=== PATIENT | female | born 1965 | race Caucasian/White ===

== ENCOUNTER → 2016-11-09 | Outpatient (CLI) | payer OTHER ==
--- NOTE | 2016-11-10 11:32 | WWHP ---
CHIEF COMPLAINT: The patient is here for her routine gynecologic exam and mammogram. HPI: This is a 50-year-old G2, P2 with an LMP of August 2016. She states the period started in July and was long and heavy. She states over the last year period have been about every 1 to 2 months. They have been somewhat irregular for the last two years. Her periods typically used to be 5 days and regular. She has not had a period since her LMP ended in August but she did have a couple days of spotting in September. She denies any significant hot flashes. She previous saw Dr. Herrera for her gynecologic care. She did have an endometrial biopsy because of a pronged period in 2014. This showed disordered proliferative endometrium on 10/29/14. PAST MEDICAL HISTORY: She has had left shoulder problems from bone spurs. She denies any other medical problems. MEDICATIONS: She takes no prescription medications but does take iron supplement and some type of adrenal supplement. ALLERGIES: No known drug allergies. PAST SURGICAL HISTORY: None. PAST OB HISTORY: Two vaginal deliveries. 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 She has no other history of STDs. SOCIAL HISTORY: She denies tobacco and drug use and has about three alcoholic drinks per year. 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 FAMILY HISTORY: Mother had breast cancer in her 60s and also had uterine cancer much earlier in life. Mother also had coronary artery disease. Grandparents had heart disease and diabetes. Father also had diabetes. REVIEW OF SYSTEMS: Weight has been stable. She denies respiratory, cardiac, or GI problems. PHYSICAL EXAM: Initial blood pressure 163/69, repeat blood pressure was 144/ 74. Height 5 feet 9 inches, weight 197 pounds. Temperature 97.7, pulse 79. This is a well developed, well nourished white female who is alert and oriented x3 in no acute distress. HEENT is within normal limits. Neck is supple without mass or thyromegaly. Chest and lungs clear to auscultation. Heart: Regular rate and rhythm. Breasts are without mass or discharge. Axillary exam is negative for adenopathy. Back negative for CVA tenderness. Abdomen is soft, nontender without palpable masses. Pelvic exam: Normal external genitalia. Cervix and vagina appear normal. There is no evidence of prolapse. The uterus is mid- position, nongravid size and nontender. There are no palpable adnexal masses or tenderness. Rectovaginal exam is negative for mass or tenderness and is negative for occult blood. Extremities are nontender. IMPRESSION: 1. A 50-year-old perimenopausal female with recent oligomenorrhea with variable flow and variable period length. 2. History of benign endometrial biopsy 2 years ago. 3. Elevated blood pressure. PLAN: 1. PAP smear was performed. 2. Self breast examination was discussed. 3. Mammogram will be done today. 4. We have discussed various options including endometrial sampling and possible cyclic progesterone therapy. At this time we have decided to proceed conservatively and she will keep a menstrual calendar. She was instructed to return with the menstrual calendar if she is having greater menstrual problems including prolonged menses, frequent menses, heavy menses or problems. 5. She will return in one year and p.r.n. MTDD
--- NOTE | 2016-11-11 11:17 | MM ---
Reason for exam: screening (asymptomatic). Last mammogram was performed 2 years and 1 month ago. History: Family history of breast cancer in mother at age 20. Physical Findings: A clinical breast exam by your physician is recommended on an annual basis and results should be correlated with mammographic findings. MG 3D Screening Mammo W/Cad Bilateral CC and MLO view(s) were taken. Prior study comparison: October 22, 2014, bilateral MG screening mammo w CAD. November 01, 2012, bilateral digital screening mammo w/CAD. The breast tissue is heterogeneously dense. This may lower the sensitivity of mammography. There is no discrete abnormality. No significant changes when compared with prior studies. ASSESSMENT: Negative, BI-RAD 1 RECOMMENDATION: Routine screening mammogram of both breasts in 1 year.
== END ==
LOC: WWCWWP 15:25
PROVIDERS: ATTEND Obstetrics & Gynecology
DX: Z12.31 Encounter for screening mammogram for malignant neoplasm of breast (principal)
CPT/HCPCS: 77063; G0202

== ENCOUNTER → 2018-05-23 | Outpatient (CLI) | payer OTHER ==
[2018-05-23 16:16] VITALS: BP 164/77; PULSE 75; RESP 18; TEMP 97.2; BMI 28.8
--- NOTE | 2018-05-23 17:05 | P.HPOB ---
History of Present Illness H&P Date: 05/23/18 Chief Complaint: The patient is here for her routine gynecologic exam and mammogram. This is a 52-year-old G2 PII with an LMP of 12/25/2017. Menses continue to become more infrequent, about everyone to 4 months. She did have a somewhat prolonged menstrual period that last 11 days in November. Her LMP was very light. She feels that her hot flashes are gradually increasing but are not very severe. She is otherwise without complaints. Review of Systems The patient has lost 13 pounds over the last year. She denies respiratory, cardiac, or G.I. problems. Past Medical History Past Medical History: No Reported History Additional Past Medical History / Comment(s): Left shoulder bone spurs. 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 No other history of STDs. Endometrial biopsy on 10/29/2014 was benign. 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 - Past Family History Mother Family Medical History: Cancer, Hyperlipidemia, Hypertension Additional Family Medical History / Comment(s): uterine and breast. stents, cardiac x2 Father Family Medical History: Diabetes Mellitus, Hypertension Medications and Allergies Home Medications Medication Instructions Recorded Confirmed Type [place]-3 Fatty Acids [[place]-3] 1,000 mg PO DAILY 05/23/18 05/23/18 History Allergies Allergy/AdvReac Type Severity Reaction Status Date / Time No Known Allergies Allergy Verified 05/23/18 16:22 Exam Vital Signs Temp Pulse Resp BP 05/23/18 16:11 97.2 F L 75 18 164/77 Intake and Output 05/23/18 05/23/18 05/23/18 06:59 14:59 22:59 Other: Weight 83.461 kg Height 5'7", weight 184 pounds, BMI 28.8. This is a well-developed well-nourished white female who is alert and oriented times 3 in no acute distress. HEENT: Within normal limits. NECK: Supple without mass or thyromegaly. CHEST AND LUNGS: Clear to auscultation. HEART: Regular rate and rhythm. BREASTS: Are without mass or discharge. AXILLARY EXAM: Negative for adenopathy. BACK: Negative for CVA tenderness. ABDOMEN: Soft, nontender, without palpable masses. PELVIC EXAM: Normal external genitalia with minimal atrophy. Cervix and vagina appear normal. There is no unusual discharge. There is no evidence of prolapse. The uterus is midposition, nongravid size and nontender. There are no palpable adnexal masses or tenderness. RECTAL EXAM: rectovaginal exam is negative for mass or tenderness and is negative for occult blood. EXTREMITIES: Nontender. IMPRESSION: 1. 52-year-old perimenopausal female with menstrual periods every 1 to 4 months during the past year. Increasing vasomotor symptoms 2. Previous ascus Pap smear with negative high-risk HPV on 11/09/2016. 3. Normal gynecologic exam. PLAN: 1. Pap smear was deferred. We will plan on repeating the Pap smear with high- risk HPV testing (co-test) in one year. We have reviewed her previous Pap smear and discussed the current recommendations for this. 2. Self breast awareness was discussed with the patient. 3. Screening mammogram was done today. 4. She will continue to keep a menstrual calendar and call if she's having menstrual problems, or if she has any bleeding after one year of amenorrhea. 5. Colonoscopy had been previously recommended. The patient has discussed this with her primary care physician and she has decided to proceed with Cologard testing. 6. She will return in one year.
--- NOTE | 2018-05-25 09:57 | MM ---
Reason for exam: screening (asymptomatic). Last mammogram was performed 1 year and 6 months ago. History: Family history of breast cancer in mother at age 20. Physical Findings: A clinical breast exam by your physician is recommended on an annual basis and results should be correlated with mammographic findings. MG 3D Screening Mammo W/Cad Bilateral CC and MLO view(s) were taken. Prior study comparison: November 09, 2016, bilateral MG 3d screening mammo w/cad. October 22, 2014, bilateral MG screening mammo w CAD. The breast tissue is heterogeneously dense. This may lower the sensitivity of mammography. No significant changes when compared with prior studies. ASSESSMENT: Negative, BI-RAD 1 RECOMMENDATION: Routine screening mammogram of both breasts in 1 year.
== END ==
LOC: WWCWWP 15:02
PROVIDERS: ATTEND Obstetrics & Gynecology
DX: Z12.31 Encounter for screening mammogram for malignant neoplasm of breast (principal)
CPT/HCPCS: 77063; 77067

== ENCOUNTER → 2018-12-21 | Outpatient (CLI) | payer OTHER ==
--- NOTE | 2018-12-21 15:23 | XR ---
EXAMINATION TYPE: XR foot complete RT DATE OF EXAM: 12/21/2018 CLINICAL HISTORY: Heel pain for 6 months. TECHNIQUE: Frontal, lateral, and oblique images of the right foot are obtained. COMPARISON: None FINDINGS: There is no acute fracture/dislocation evident in the right foot. Flexion and second thro ugh fifth toes is seen. There is various positioning distal third through fifth toes. Tiny superior c alcaneal spur. The joint spaces in the right foot appear within normal limits. The overlying soft ti ssue appears unremarkable. IMPRESSION: As above.
== END | disposition home or self-care (01) ==
LOC: RADXRYALE 15:05
PROVIDERS: ATTEND Family Medicine
DX: M77.31 Calcaneal spur, right foot (principal); M21.271 Flexion deformity, right ankle and toes

== ENCOUNTER 2018-12-29 18:36 | Emergency (ER) | payer OTHER ==
[2018-12-29 18:45] VITALS: TEMP 97.8
--- NOTE | 2018-12-29 19:19 | ED ---
Back Pain HPI - General Chief Complaint: Back Pain/Injury Stated Complaint: Side Pain Time Seen by Provider: 12/29/18 19:03 Source: patient Limitations: no limitations - History of Present Illness Initial Comments: Patient is a 53-year-old female presenting to the emergency department with a chief complaint of abdominal and back pain. Patient reports her symptoms started approximately a week ago with a sudden onset of sharp paraspinal pain in the lumbosacral region and radiates to the abdomen. Patient reportedly recently the pain has been more localized to the right lower quadrant region. Patient reports the pain is not related to oral intake. Patient reports she has no pain at this moment. An typical episodes last for about 30 minutes. Patient denies any nausea vomiting diarrhea. Patient denies any recent fevers night sweats or chills. Patient denies any abdominal surgeries. Patient is not concerned for . Patient denies any urinary or bowel symptoms. Patient reports the pain is not related to specific anatomical movements. Patient denies any trauma to the region. Patient denies saddle anesthesia, urinary or bowel incontinence. - Related Data Home Medications Medication Instructions Recorded Confirmed [place]-3 Fatty Acids [[place]-3] 1,000 mg PO DAILY 05/23/18 05/23/18 Previous Rx's Medication Instructions Recorded Cephalexin [Keflex] 500 mg PO Q6HR 3 Days #20 cap 12/29/18 Allergies Allergy/AdvReac Type Severity Reaction Status Date / Time No Known Allergies Allergy Verified 12/29/18 18:45 Review of Systems ROS Statement: Those systems with pertinent positive or pertinent negative responses have been documented in the HPI. ROS Other: All systems not noted in ROS Statement are negative. Past Medical History Past Medical History: No Reported History Additional Past Medical History / Comment(s): Left shoulder bone spurs. Endometrial biopsy on 10/29/2014 was benign. History of Any Multi-Drug Resistant Organisms: None Reported Past Surgical History: No Surgical Hx Reported Past Anesthesia/Blood Transfusion Reactions: No Reported Reaction Past Psychological History: No Psychological Hx Reported Smoking Status: Never smoker Past Alcohol Use History: Rare Past Drug Use History: None Reported - Past Family History Mother Family Medical History: Cancer, Hyperlipidemia, Hypertension Additional Family Medical History / Comment(s): uterine and breast. stents, cardiac x2 Father Family Medical History: Diabetes Mellitus, Hypertension General Exam Limitations: no limitations General appearance: alert, in no apparent distress Head exam: Present: atraumatic, normocephalic, normal inspection Eye exam: Present: normal appearance, PERRL, EOMI Pupils: Present: normal accommodation ENT exam: Present: normal exam, normal oropharynx, mucous membranes moist, TM's normal bilaterally, normal external ear exam Neck exam: Present: normal inspection, full ROM. Absent: tenderness, meningismus Respiratory exam: Present: normal lung sounds bilaterally Cardiovascular Exam: Present: regular rate, normal rhythm, normal heart sounds GI/Abdominal exam: Present: soft, tenderness (Right lower quadrant), normal bowel sounds. Absent: distended, guarding, rebound, mass, pulsatile mass, hernia Extremities exam: Present: normal inspection, full ROM, normal capillary refill, other (+2 dorsalis pedis and posterior tibialis bilaterally.) Back exam: Present: normal inspection, full ROM. Absent: tenderness (No tenderness to palpation in the back.), CVA tenderness (R), CVA tenderness (L), muscle spasm, paraspinal tenderness, vertebral tenderness Neurological exam: Present: alert, oriented X3 Psychiatric exam: Present: normal affect, normal mood Skin exam: Present: warm, intact, normal color Course Vital Signs 12/29/18 12/29/18 18:43 21:20 Temperature 97.8 F 97.8 F Pulse Rate 77 18 L Respiratory 18 76 H Rate Blood Pressure 160/81 163/78 O2 Sat by Pulse 99 99 Oximetry Medical Decision Making - Medical Decision Making Patient is a 53-year-old female presenting to the emergency department with a chief complaint of abdominal pain. Patient reports cramping pain in the right lower quadrant region and comes and goes. Patient also reports that initially started as back pain but has since then to the right lower quadrant. Patient reports going to the urgent care who was concerned for appendicitis and sent the patient for ED evaluation. Patient has McBurney point tenderness but negative obturator, negative Rovsing, negative psoas, negative rebound and negative [place]. Laboratory results are unremarkable. UA is indicative of a mild possible UTI. Hematuria could also be indicative of a possible kidney stone. At this time patient does not fit the augustin criteria for CT imaging. Strict return parameters were thoroughly discussed with patient was understanding and agreeable. Patient will be treated with Keflex. Case discussed with physician. - Lab Data Result diagrams: 12/29/18 20:12/29/18 20: Lab Results 12/29/18 12/29/18 12/29/18 Range/Units 20: 20: 20:01 WBC 9.4 (3.8-10.6) k/uL RBC 4.79 (3.80-5.40) m/uL Hgb 15.7 (11.4-16.0) gm/dL Hct 44.4 (34.0-46.0) % MCV 92.8 (80.0-100.0) fL MCH 32.9 (25.0-35.0) pg MCHC 35.4 (31.0-37.0) g/dL RDW 13.5 (11.5-15.5) % Plt Count 276 (150-450) k/uL Neutrophils % 78 % Lymphocytes % 15 % Monocytes % 5 % Eosinophils % 1 % Basophils % 0 % Neutrophils # 7.4 (1.3-7.7) k/uL Lymphocytes # 1.4 (1.0-4.8) k/uL Monocytes # 0.5 (0-1.0) k/uL Eosinophils # 0.1 (0-0.7) k/uL Basophils # 0.0 (0-0.2) k/uL Sodium 139 (137-145) mmol/L Potassium 4.0 (3.5-5.1) mmol/L Chloride 102 (98-107) mmol/L Carbon Dioxide 24 (22-30) mmol/L Anion Gap 13 mmol/L BUN 14 (7-17) mg/dL Creatinine 0.74 (0.52-1.04) mg/dL Est GFR (CKD-EPI)AfAm >90 (>60 ml/min/1.73 sqM) Est GFR (CKD-EPI)NonAf >90 (>60 ml/min/1.73 sqM) Glucose 76 (74-99) mg/dL Calcium 9.6 (8.4-10.2) mg/dL Total Bilirubin 0.9 (0.2-1.3) mg/dL AST 26 (14-36) U/L ALT 28 (9-52) U/L Alkaline Phosphatase 74 (38-126) U/L Total Protein 7.8 (6.3-8.2) g/dL Albumin 4.8 (3.5-5.0) g/dL Amylase 55 (30-110) U/L Lipase 76 (23-300) U/L Urine Color Light Yellow Urine Appearance Clear (Clear) Urine pH 5.5 (5.0-8.0) Ur Specific [place] 1.018 (1.001-1.035) Urine Protein Trace H (Negative) Urine Glucose (UA) Negative (Negative) Urine Ketones Negative (Negative) Urine Blood Moderate H (Negative) Urine Nitrite Negative (Negative) Urine Bilirubin Negative (Negative) Urine Urobilinogen <2.0 (<2.0) mg/dL Ur Leukocyte Esterase Moderate H (Negative) Urine RBC 35 H (0-5) /hpf Urine WBC 22 H (0-5) /hpf Urine Mucus Occasional H (None) /hpf Urine HCG, Qual (Not Detectd) 12/29/18 Range/Units 20:01 WBC (3.8-10.6) k/uL RBC (3.80-5.40) m/uL Hgb (11.4-16.0) gm/dL Hct (34.0-46.0) % MCV (80.0-100.0) fL MCH (25.0-35.0) pg MCHC (31.0-37.0) g/dL RDW (11.5-15.5) % Plt Count (150-450) k/uL Neutrophils % % Lymphocytes % % Monocytes % % Eosinophils % % Basophils % % Neutrophils # (1.3-7.7) k/uL Lymphocytes # (1.0-4.8) k/uL Monocytes # (0-1.0) k/uL Eosinophils # (0-0.7) k/uL Basophils # (0-0.2) k/uL Sodium (137-145) mmol/L Potassium (3.5-5.1) mmol/L Chloride (98-107) mmol/L Carbon Dioxide (22-30) mmol/L Anion Gap mmol/L BUN (7-17) mg/dL Creatinine (0.52-1.04) mg/dL Est GFR (CKD-EPI)AfAm (>60 ml/min/1.73 sqM) Est GFR (CKD-EPI)NonAf (>60 ml/min/1.73 sqM) Glucose (74-99) mg/dL Calcium (8.4-10.2) mg/dL Total Bilirubin (0.2-1.3) mg/dL AST (14-36) U/L ALT (9-52) U/L Alkaline Phosphatase (38-126) U/L Total Protein (6.3-8.2) g/dL Albumin (3.5-5.0) g/dL Amylase (30-110) U/L Lipase (23-300) U/L Urine Color Urine Appearance (Clear) Urine pH (5.0-8.0) Ur Specific [place] (1.001-1.035) Urine Protein (Negative) Urine Glucose (UA) (Negative) Urine Ketones (Negative) Urine Blood (Negative) Urine Nitrite (Negative) Urine Bilirubin (Negative) Urine Urobilinogen (<2.0) mg/dL Ur Leukocyte Esterase (Negative) Urine RBC (0-5) /hpf Urine WBC (0-5) /hpf Urine Mucus (None) /hpf Urine HCG, Qual Not Detected (Not Detectd) Disposition Clinical Impression: UTI (urinary tract infection) Disposition: HOME SELF-CARE Condition: Stable Instructions (If sedation given, give patient instructions): Kidney Stones (ED) Additional Instructions: Please take prescribed medication as directed. Please follow up with primary care. Please return to emergency department if symptoms worsen. Prescriptions: Cephalexin [Keflex] 500 mg PO Q6HR 3 Days #20 cap Is patient prescribed a controlled substance at d/c from ED?: No Referrals: Garland Lemons DO [Primary Care Provider] - 1-2 days Time of Disposition: 21:01
[2018-12-29 20:20] LABS: ALT 28 U/L (9-52); AST 26 U/L (14-36); African American GFR (CKD) >90 (>60 ml/min/1.73 sqM); Albumin 4.8 g/dL (3.5-5.0); Alkaline Phosphatase 74 U/L (38-126); Amylase 55 U/L (30-110); Anion Gap 13 mmol/L; Blood Urea Nitrogen 14 mg/dL (7-17); Calcium 9.6 mg/dL (8.4-10.2); Carbon Dioxide 24 mmol/L (22-30); Chloride 102 mmol/L (98-107); Glucose 76 mg/dL (74-99); Sodium 139 mmol/L (137-145); Total Bilirubin 0.9 mg/dL (0.2-1.3); Total Protein 7.8 g/dL (6.3-8.2)
[2018-12-29 20:27] LABS: Basophils % (A) 0 %; Eosinophils # (A) 0.1 k/uL (0-0.7); Eosinophils % (A) 1 %; HCT 44.4 % (34.0-46.0); HGB 15.7 gm/dL (11.4-16.0); Lymphocytes # (A) 1.4 k/uL (1.0-4.8); Lymphocytes % (A) 15 %; MCH 32.9 pg (25.0-35.0); MCHC 35.4 g/dL (31.0-37.0); MCV 92.8 fL (80.0-100.0); Mean Platelet Volume 6.6; Monocytes # (A) 0.5 k/uL (0-1.0); Monocytes % (A) 5 %; Neutrophils # (A) 7.4 k/uL (1.3-7.7); Neutrophils % (A) 78 %; Platelet Count 276 k/uL (150-450); RBC 4.79 m/uL (3.80-5.40); RDW 13.5 % (11.5-15.5); WBC 9.4 k/uL (3.8-10.6)
[2018-12-29 20:39] LABS: Appearance,Urine Clear (Clear); Bilirubin,Urine Negative (Negative); Blood,Urine Moderate (Negative); Color,Urine Light Yellow; Glucose,Urine (UA) Negative (Negative); Ketones,Urine Negative (Negative); Leukocyte Esterase,Urine Moderate (Negative); Mucus,Urine Occasional /hpf; Nitrite,Urine Negative (Negative); PH, Urine 5.5 (5.0-8.0); Protein,Urine Trace (Negative); RBC,Urine 35 /hpf (0-5); Specific Gravity,Urine 1.018 (1.001-1.035); Urobilinogen,Urine <2.0 mg/dL (<2.0); WBC,Urine 22 /hpf (0-5)
[2018-12-29 21:21] VITALS: BP 163/78; PULSE 18; RESP 76
== END 2018-12-29 21:22 | disposition home or self-care (01) ==
LOC: EC 18:36
DX: N39.0 Urinary tract infection, site not specified (principal)
CPT/HCPCS: 36415; 80053; 81001; 81025; 82150; 83690; 85025; 99284

== ENCOUNTER → 2019-01-04 | Outpatient (CLI) | payer OTHER ==
--- NOTE | 2019-01-04 18:12 | CT ---
EXAMINATION TYPE: CT abdomen pelvis w con DATE OF EXAM: 01/04/2019 COMPARISON: None HISTORY: Right flank and abdominal pain, hematuria CT DLP: 1654 mGycm Automated exposure control for dose reduction was used. TECHNIQUE: Helical acquisition of images from the lung bases through the pelvis have been completed. CONTRAST: Performed with Oral Contrast and with IV Contrast, patient injected with 100 mL of Isovue 300. FINDINGS: LUNG BASES: No significant abnormality is appreciated. AORTA: No significant abnormality is appreciated. LIVER/GB: Gallstones are present in the gallbladder. Liver shows low attenuation likely due to hepati c steatosis. Focal fatty sparing present adjacent to the gallbladder. Liver is enlarged. PANCREAS: No significant abnormality is seen. SPLEEN: No significant abnormality is seen. ADRENALS: No significant abnormality is seen. KIDNEYS: Calcified right renal pelvic calculus measures 2.5 cm. There is some mild right-sided hydron ephrosis. Some enhancement of the proximal right ureter could be due to inflammatory change. There is a cortical cyst left kidney lower pole measuring 13 mm. There is mild right hydroureter. REPRODUCTIVE ORGANS: Mild heterogeneity of the endometrium is noted. This is of questionable clinical significance. Left ovarian cyst is present measuring 3.4 cm. BOWEL: No significant abnormality is seen. The appendix is normal. FREE AIR: No Free Air visible. ASCITES: None visible. PELVIC ADENOPATHY: None visualized. RETROPERITONEAL ADENOPATHY: No Retroperitoneal Adenopathy visible. URINARY BLADDER: No significant abnormality is seen. OSSEOUS STRUCTURES: No significant abnormality is seen. IMPRESSION: RIGHT-SIDED NEPHROLITHIASIS. POSSIBLE ASSOCIATED INFLAMMATORY CHANGE, CORRELATE TO EXCLUDE URINARY TR ACT INFECTION. CHOLELITHIASIS. HEPATIC STEATOSIS, HEPATOMEGALY. INDETERMINATE LEFT OVARIAN CYSTIC LES ION.
== END | disposition home or self-care (01) ==
LOC: RADCTMAIN 14:22
PROVIDERS: ATTEND Family Medicine
DX: N20.0 Calculus of kidney (principal); K76.0 Fatty (change of) liver, not elsewhere classified; R16.0 Hepatomegaly, not elsewhere classified; K80.20 Calculus of gallbladder without cholecystitis without obstruction; R31.29 Other microscopic hematuria
CPT/HCPCS: 74177; Q9967 ×2

== ENCOUNTER → 2019-01-22 | Outpatient (CLI) | payer OTHER ==
[2019-01-22 07:34] LABS: Calcium 9.5 mg/dL (8.4-10.2); Potassium 4.6 mmol/L (3.5-5.1)
[2019-01-22 07:38] LABS: Basophils % (A) 1 %; Eosinophils # (A) 0.1 k/uL (0-0.7); Eosinophils % (A) 2 %; HCT 43.8 % (34.0-46.0); HGB 15.1 gm/dL (11.4-16.0); Lymphocytes # (A) 1.5 k/uL (1.0-4.8); Lymphocytes % (A) 30 %; MCH 32.3 pg (25.0-35.0); MCHC 34.4 g/dL (31.0-37.0); MCV 93.8 fL (80.0-100.0); Mean Platelet Volume 5.7; Monocytes # (A) 0.3 k/uL (0-1.0); Monocytes % (A) 7 %; Neutrophils # (A) 2.7 k/uL (1.3-7.7); Neutrophils % (A) 57 %; Platelet Count 302 k/uL (150-450); RBC 4.67 m/uL (3.80-5.40); RDW 13.1 % (11.5-15.5); WBC 4.8 k/uL (3.8-10.6)
[2019-01-22 07:49] LABS: Appearance,Urine Clear (Clear); Bilirubin,Urine Negative (Negative); Blood,Urine Trace (Negative); Color,Urine Light Yellow; Glucose,Urine (UA) Negative (Negative); Ketones,Urine Negative (Negative); Leukocyte Esterase,Urine Moderate (Negative); Mucus,Urine Rare /hpf; Nitrite,Urine Negative (Negative); PH, Urine 5.5 (5.0-8.0); Protein,Urine Negative (Negative); RBC,Urine 3 /hpf (0-5); Specific Gravity,Urine 1.013 (1.001-1.035); Squamous Epithelial Cell,Urine 1 /hpf (0-4); Urobilinogen,Urine <2.0 mg/dL (<2.0); WBC,Urine 17 /hpf (0-5)
== END | disposition home or self-care (01) ==
LOC: LABPAT 06:33
PROVIDERS: ATTEND Urology
DX: Z01.818 Encounter for other preprocedural examination (principal); Z01.812 Encounter for preprocedural laboratory examination; N20.0 Calculus of kidney; R31.29 Other microscopic hematuria; R53.83 Other fatigue
CPT/HCPCS: 36415; 80048; 81001; 85025; 87086; 93005

== ENCOUNTER 2019-01-29 08:05 | Day surgery (SDC) | payer OTHER ==
[2019-01-24 17:16] VITALS: BMI 30.2
--- NOTE | 2019-01-29 08:33 | XR ---
EXAMINATION TYPE: XR abdomen 1V DATE OF EXAM: 01/29/2019 Comparison: CT 01/04/2019 Clinical History: 53-year-old female N41 stones Findings: Nonobstructive bowel gas pattern. Overall mild stool burden with moderate stool in the rectum. Large 2.7 cm calculus within the right renal collecting system. Impression: Redemonstrated 2.7 cm right-sided renal calculus located within the collecting system.
[2019-01-29] MEDS ORDERED: LACTATED RINGERS 1,000 ML IV ONE ×2 (08:47→11:39)
[2019-01-29] MEDS ORDERED: ONDANSETRON 4 MG/2 ML VIAL IVP ONE (08:51)
[2019-01-29] MEDS ORDERED: HYDROmorphone 0.5 MG/0.5 ML SYRINGE IVP PRN (08:51)
[2019-01-29] MEDS ORDERED: DEXAMETHASONE SOD PHOSPHATE 10 MG/ML 1 ML VIAL IV ONE (08:51)
[2019-01-29] MEDS ORDERED: LIDOCAINE 1% 20 ML VIAL (10MG/ML) FOR IV START INTRADERMA PRN (08:51)
[2019-01-29] MEDS ORDERED: SCOPOLAMINE 1.5MG/72HR PATCH TRANSDERM ONE (08:51)
[2019-01-29] MEDS ORDERED: SUCCINYLCHOLINE CHLORIDE 100 MG/5 ML SYR IV ONE (09:34)
[2019-01-29] MEDS ORDERED: PROPOFOL 10 MG/ML 20 ML VIAL IV ONE (09:34)
[2019-01-29] MEDS ORDERED: DEXAMETHASONE SOD PHOS (MDV) 100 MG/10 ML VIAL ONE (09:34)
[2019-01-29] MEDS ORDERED: fentaNYL (PF) 50 MCG/ML 2 ML AMP ONE (09:34)
[2019-01-29] MEDS ORDERED: KETOROLAC 30 MG/ML 1 ML VIAL ONE (09:34)
[2019-01-29] MEDS ORDERED: MIDAZOLAM 2 MG/2 ML VIAL ONE (09:34)
[2019-01-29] MEDS ORDERED: IOPAMIDOL-370 50ML BTL MISCELLANE ONE ×2 (09:34)
[2019-01-29] MEDS ORDERED: ONDANSETRON 4 MG/2 ML VIAL ONE (09:34)
--- NOTE | 2019-01-29 09:41 | P.HPIHPCON ---
History of Present Illness H&P Date: 01/29/19 Chief Complaint: right sided renal stone 53 yo female with hx of right sided renal stone. She elected to proceed with R PCNL Consent for Procedure: I have explained the operation/procedure to the patient, including the risks, benefits, side effects, alternative therapies (including not receiving the proposed treatment or service), the likelihood of the patient achieving his/her goals, and potential recuperation problems for the procedure/sedation/analgesia, as well as any blood products, if indicated. I also explained to the patient the risks, benefits and side effects of the alternatives, as well as the risks related to not receiving the proposed procedure, care, treatment, or services. Past Medical History Past Medical History: Musculoskeletal Disorder Additional Past Medical History / Comment(s): Left shoulder bone spurs, sl tear. Endometrial biopsy 10/29/2014, benign. Kidney stones. Told "liver enlarged, lt ovarian cyst, gallstones on recent CT scan." History of Any Multi-Drug Resistant Organisms: None Reported Past Surgical History: No Surgical Hx Reported Additional Past Surgical History / Comment(s): [place] teeth removed. Past Anesthesia/Blood Transfusion Reactions: No Reported Reaction, Family History of Problems w/ Anesthesia Additional Past Anesthesia/Blood Transfusion Reaction / Comment(s): Mother had problem years ago, recent surgery no problems. Smoking Status: Never smoker - Past Family History Mother Family Medical History: Cancer, Hyperlipidemia, Hypertension Additional Family Medical History / Comment(s): uterine and breast. stents, cardiac x2 Father Family Medical History: Diabetes Mellitus, Hypertension Brother(s) Family Medical History: Cancer Additional Family Medical History / Comment(s): Skin CA; another brother had a male-type CA, unknown Medications and Allergies Home Medications Medication Instructions Recorded Confirmed Type Cholecalciferol (Vitamin D3) 1 drop PO DAILY 01/24/19 01/24/19 History [Vitamin D3] Fish Oil/Dha/Epa [Fish Oil 1,200 3 each PO DAILY 01/24/19 01/24/19 History mg Fish Oil] Niacin 500 mg PO DAILY 01/24/19 01/24/19 History Turmeric/Turmeric Root Extract 2 each PO DAILY 01/24/19 01/24/19 History [Turmeric 450-50 mg Capsule] Allergies Allergy/AdvReac Type Severity Reaction Status Date / Time No Known Allergies Allergy Verified 01/29/19 08:30 Surgical - Exam Vital Signs Temp Pulse Resp BP Pulse Ox 97.3 F L 86 16 164/69 98 01/29/19 08:38 01/29/19 08:38 01/29/19 08:38 01/29/19 08:38 01/29/19 08:38 - General well developed, no distress - Respiratory normal expansion, normal respiratory effort - Cardiovascular Rhythm: regular - Abdomen Abdomen: soft, non tender Assessment and Plan Assessment: 53 yo female with hx of 2.7 cm right sided renal stone -R PCNL, we discussed the surgery with her in details and all alternative. She agreed to proceed with R PCNL
[2019-01-29 09:56] LABS: Prothrombin Time 10.7 sec (9.0-12.0)
[2019-01-29] MEDS ORDERED: ACETAMINOPHEN TAB 325 MG TAB PO PRN (12:04)
[2019-01-29] MEDS ORDERED: ONDANSETRON 4 MG/2 ML VIAL IVP PRN (12:04)
[2019-01-29] MEDS ORDERED: MAG HYDROX/AL HYDROX/SIMETH 30 ML CUP PO PRN (12:04)
[2019-01-29] MEDS ORDERED: MORPHINE SULFATE 4 MG/ML SYRINGE IVP PRN (12:07)
--- NOTE | 2019-01-29 13:04 | FL ---
EXAMINATION TYPE: FL Perc Nephrostomy New Access DATE OF EXAM: 01/29/2019 COMPARISON: NONE HISTORY: Hydronephrosis, ureteral obstruction with staghorn calculus. PROCEDURE: Maximal barrier technique was utilized. The skin overlying the right kidney was localized using fluo roscopy and the overlying skin prepped and draped. Lidocaine used for local anesthesia. Skin alyse w as made with a scalpel. Access was gained under fluoroscopy, following placement of a ureteral occlu alyssa balloon by the referring clinician and instillation of air in the renal collecting system with a 21-gauge needle to the kidney. A suitable posterior calyx was chosen. A 0.018 inch wire was Do It In Person. The access site was dilated and subsequently a sheath was advanced into the renal pelvis follow ing dilation with balloon along the tract. Urine returned in the hub of the catheter. The patient und erwent nephrolithotomy by the referring clinician. The patient remained in stable condition without complication. The patient was discharged to observation. IMPRESSION: 4 intraoperative C-arm images. 2 minutes 25 seconds of intraoperative fluoroscopy support supplied STATUS POST NEPHROSTOMY PLACEMENT FOR NEPHROLITHOTOMY WITH FLUOROSCOPIC GUIDANCE. THIS PROCEDURE PER FORMED BY THE UNDERSIGNED.
[2019-01-29] MEDS: DEXTROSE 5%-0.45% NACL 1,000 ML IV SCH ×2 (14:07→20:30)
[2019-01-29] MEDS: LACTATED RINGERS 1,000 ML IV SCH (15:22)
[2019-01-29] MEDS ORDERED: ceFAZolin 1 GM in SODIUM CHLORIDE 0.9% 100 ML IVPB SCH (16:00)
--- NOTE | 2019-01-29 16:38 | P.OP ---
Date of Procedure: 01/29/19 Preoperative Diagnosis: Right sided renal calculi Postoperative Diagnosis: same Procedure(s) Performed: Cystoscopy, right ureteral catherization, Right PCNL, anterograde stent placement and nephrostomy tube placement Implants: 6Fr X 26 cm stent Anesthesia: NIKKI Surgeon: Etienne Bullock Estimated Blood Loss (ml): 75 Pathology: other (stone for analysis) Condition: stable Disposition: floor Indications for Procedure: Ms. Tamayo is 53 yo female with hx of a large right side calculi. We discussed with her given the stone size a PCNL would be the most definitve option to address her stone. We discussed the alternative which are ESWL and ureteroscopy. I discussed the risk of PCNL which include bleeding, infection and injury to nearby organ. She understood all the risk and agreed to proceed with surgery Sge understood all the risks and agreed to proceed with Right PCNL.I have explained the operation/procedure to the patient, including the risks, benefits, side effects, alternative therapies (including not receiving the proposed niraj atment or service), the likelihood of the patient achieving his/her goals, and potential recuperation problems for the procedure/sedation/analgesia, as well as any blood products, if indicated. I also explained to the patient the risks, benefits and side effects of the alternatives, as well as the risks related to not receiving the proposed procedure, care, treatment, or services. Operative Findings: Large right sided renal calculi in the renal pelvis Description of Procedure: The patient was brought to the operating room, general anesthesia was induced. She was prepped and draped in sterile fashion and placed supine frog leg postion. the right ureteral orfice was identified and intubated with 0.035 motion wire. The cystoscope was removed with wire in place.A 7 Fr baloon ocluded catheter was passed over the wire and advanced to the renal pelvis, a [place] catheter was placed in the bladder At this time the patient was placed in prone position, and prepped and draped in sterile fashion. A large renal calculi was visualized on fluoroscopy. At this time Dr Erickson performed percutaneous access on the right kidney. Please see his dictation for his portion of procedure. Once access was obtained the The tract was dilated using the balloon dilators, Next a 24-Vietnamese access sheath was advanced over the balloon. The balloon was re moved with the sheath in place. Next a rigid nephroscope was inserted through the sheath and large calculi was visualized. The stone was broken up into smaller fragments using the ultrasound lithotripter. Stone fragments were removed and sent for stone analysis. Repeat nephroscopy was performed using the rigid nephroscope and flexibile cystoscope Showed no injury to the UPJ or renal pelvis, contrast extravisation or any residual stone. Anterograde nephrostogram showed no filling defect or any residual stones in the ureter or the kidney. . Next a 0.035 sensor wire was advanced through the scope and into the bladder. scope was removed with wire in place. next the 10 Fr dilator was passed over the wire. A second wire was passed through the dilator Next, a 4.8- Vietnamese by 26 cm stent was passed over the wire and curl was visualized in the bladder and kidney under fluoroscopy. A 10 Fr nephrostomy tube was passed over the second wire and into the renal pelvis. The patient was awoken from anesthesia and taken to the recovery room in stable condition.
[2019-01-29] MEDS: SODIUM CHLORIDE 0.9% 1,000 ML IV SCH (16:51)
[2019-01-29] MEDS: HEPARIN SODIUM,PORCINE 5,000 UNIT/ML 1 ML VIAL SQ SCH ×2 (16:51→23:47)
[2019-01-29 20:48] VITALS: RESP 18
[2019-01-29 21:47] LABS: HCT 38.9 % (34.0-46.0); HGB 13.7 gm/dL (11.4-16.0); MCH 32.7 pg (25.0-35.0); MCHC 35.3 g/dL (31.0-37.0); MCV 92.8 fL (80.0-100.0); Mean Platelet Volume 5.9; Platelet Count 288 k/uL (150-450); RBC 4.19 m/uL (3.80-5.40); RDW 12.7 % (11.5-15.5); WBC 10.6 k/uL (3.8-10.6)
[2019-01-29 21:57] LABS: Potassium 4.9 mmol/L (3.5-5.1)
[2019-01-30] MEDS: KETOROLAC 30 MG/ML 1 ML VIAL IVP PRN ×2 (03:35→13:16)
[2019-01-30] MEDS: SODIUM CHLORIDE 0.9% 1,000 ML IV SCH (03:48)
[2019-01-30] MEDS: HEPARIN SODIUM,PORCINE 5,000 UNIT/ML 1 ML VIAL SQ SCH (08:39)
[2019-01-30] MEDS ORDERED: CHOLECALCIFEROL 1,000 UNIT TAB PO SCH (09:00)
[2019-01-30] MEDS: DEXTROSE 5%-0.45% NACL 1,000 ML IV SCH (09:08)
[2019-01-30] MEDS: LACTATED RINGERS 1,000 ML IV SCH (09:09)
[2019-01-30 12:28] VITALS: BP 134/64; PULSE 63; TEMP 96.9
--- NOTE | 2019-01-30 13:00 | P.PN ---
Subjective Progress Note Date: 01/30/19 Principal diagnosis: right renal calculi Ms. Tamayo is 53 yo female S/P R PCNL. no acute overnight event, pain is controlled. Tolerating diet, denies N/V. Objective - Vital Signs Vital signs: Vital Signs Temp 96.9 F L 01/30/19 12:27 Pulse 63 01/30/19 12:27 Resp 18 01/30/19 12:27 BP 134/64 01/30/19 12:27 Pulse Ox 98 01/30/19 12:27 Intake & Output 01/29/19 01/30/19 01/30/19 18:59 06:59 18:59 Intake Total 1650 1800 Output Total 2085 2000 475 Balance -435 -200 -475 Intake: IV 1650 Intake, IV Titration 1200 Amount Sodium Chloride 0.9% 1, 1200 000 ml @ 100 mls/hr IV . Q10H FAROOQ Rx#:[id number] Oral 600 Output: Drainage 760 1000 Right Lower Back 760 1000 Urine 1250 1000 475 Uretheral ([place]) 475 Estimated Blood Loss 75 Other: Voiding Method Indwelling Catheter Indwelling Catheter Indwelling Catheter # Voids 2 - Constitutional General appearance: Present: no acute distress - Gastrointestinal General gastrointestinal: Absent: rigid, tenderness - Psychiatric Psychiatric: Present: A&O x's 3 - Labs CBC & Chem 7: 01/29/19 21:32 01/29/19 21:32 Assessment and Plan Assessment: POD #1 S/P R PCNL. doing well post operatively Plan: -pain control -D/C [place] -Discharge home today F/U in one week for stent and PCN removal
--- NOTE | 2019-01-30 13:05 | P.DS ---
Providers Date of admission: 01/29/19 Expected date of discharge: 01/30/19 Attending physician: Etienne Bullock MD Primary care physician: [facility] Course: Ms. Tamayo is 53 yo female with hx of right sided renal calculi. S/P R PCNL on 01/29, please see op note dated 01/29 for surgery details. She was admitted to the hospital post operatively, she did well in the postoperatively. Beasley was removed on POD #1. She was discharged home on POD #1. At time of discharge she was tolerating a diet, ambulating and pain is controlled.SHe was discharged home with PCN and stent Plan - Discharge Summary Discharge Rx Participant: No New Discharge Prescriptions: No Action Turmeric/Turmeric Root Extract [Turmeric 450-50 mg Capsule] 2 each PO DAILY Niacin 500 mg PO DAILY Fish Oil/Dha/Epa [Fish Oil 1,200 mg Fish Oil] 3 each PO DAILY Cholecalciferol (Vitamin D3) [Vitamin D3] 1 drop PO DAILY Discharge Medication List Cholecalciferol (Vitamin D3) [Vitamin D3] 1 drop PO DAILY 01/24/19 [History] Fish Oil/Dha/Epa [Fish Oil 1,200 mg Fish Oil] 3 each PO DAILY 01/24/19 [History] Niacin 500 mg PO DAILY 01/24/19 [History] Turmeric/Turmeric Root Extract [Turmeric 450-50 mg Capsule] 2 each PO DAILY 01/24/19 [History] Activity/Diet/Wound Care/Special Instructions: -You may notice some blood in the urine -You may notice some drainage around your tube and this is normal -Start using your antibiotics one day prior to your stent removal appointment Discharge Disposition: HOME SELF-CARE
--- NOTE | 2019-02-02 16:51 | CDI ---
Date: CDS/Front Man Name: Kristi Proctor Phone: If any questions, call Shahnaz Lindquist Coding [facility] at [phone] Patient Name: Kendell Fuentes Admit Date: 01/29/19 Discharge Date: 01/30/19 ATTENTION: The [facility] Coding Staff appreciate your assistance in clarifying documentation. Please respond to the clarification below the line at the bottom and electronically sign. The [facility] coding Staff will review the response and follow-up if needed Please note: Queries are made part of the Legal Health Record. If you have any questions, please contact the manager coding. Dear Dr. Bullock, Please provide clarification as to the size of the calculus in the kidney The operative report is just stating large. In order to code to the greatest specificity, the size of the stone is needed. Thank you for your kind consideration. The size of the stone was 2.5 cm MTDD
== END 2019-01-30 13:35 | disposition home or self-care (01) ==
LOC: OR 08:05 → 3NMEDONC 12:30 → OR 01-30 13:35
PROVIDERS: ATTEND Urology
DX: N20.0 Calculus of kidney (principal); M77.9 Enthesopathy, unspecified; K80.80 Other cholelithiasis without obstruction; N83.202 Unspecified ovarian cyst, left side; S63.8X9A Sprain of other part of unspecified wrist and hand, initial encounter; Z82.49 Family history of ischemic heart disease and other diseases of the circulatory system; Z83.3 Family history of diabetes mellitus; Z83.438 Family history of other disorder of lipoprotein metabolism and other lipidemia; Z80.3 Family history of malignant neoplasm of breast; Z80.49 Family history of malignant neoplasm of other genital organs; Z80.8 Family history of malignant neoplasm of other organs or systems; Z80.9 Family history of malignant neoplasm, unspecified
CPT/HCPCS: 81025; 80051; 85027; 85610; 82365; 50432; 74018; 50081; C2625; C1769 ×3; C2628 ×2; C1729 ×2; C1894; J2250; J1644 ×2; J1100 ×2; J0690 ×3; J2405; J3010; J1885 ×2; J0330; J2704; Q9967; 86850; 86900; 86901

== ENCOUNTER → 2019-02-22 | Outpatient (CLI) | payer OTHER ==
[2019-02-22 19:09] LABS: ALT 36 U/L (9-52); AST 21 U/L (14-36); African American GFR (CKD) >90 (>60 ml/min/1.73 sqM); Albumin 4.1 g/dL (3.5-5.0); Alkaline Phosphatase 66 U/L (38-126); Anion Gap 8 mmol/L; Blood Urea Nitrogen 12 mg/dL (7-17); Calcium 9.5 mg/dL (8.4-10.2); Carbon Dioxide 28 mmol/L (22-30); Chloride 105 mmol/L (98-107); Glucose 85 mg/dL (74-99); Potassium 3.8 mmol/L (3.5-5.1); Sodium 141 mmol/L (137-145); Total Bilirubin 0.7 mg/dL (0.2-1.3); Total Protein 6.9 g/dL (6.3-8.2)
--- NOTE | 2019-02-23 07:01 | US ---
EXAMINATION TYPE: US kidneys/renal and bladder DATE OF EXAM: 02/22/2019 COMPARISON: CT CLINICAL HISTORY: N20.0 Kidney stone. History of renal stone removal and stent placement. Stent has b een removed, patient still having pain. EXAM MEASUREMENTS: Right Kidney: 11.1 x 5.3 x 5.9 cm Left Kidney: 11.3 x 4.9 x 5.8 cm Right Kidney: Moderate right hydronephrosis, no definite stone seen Left Kidney: unable to see cyst as described on CT. Bladder: wnl Bilateral Jets seen: Yes No nephrolithiasis is seen. No masses are identified. The urinary bladder is anechoic. Bilateral u reteral jets are seen. IMPRESSION: 1. Moderate right hydronephrosis status post ureteral stent removal. 2. Nonvisualization of the known left lower pole renal cyst seen on the prior CT.
--- NOTE | 2019-02-23 07:14 | XR ---
EXAMINATION TYPE: XR KUB DATE OF EXAM: 02/22/2019 6:07 PM CLINICAL HISTORY: Recent lithotripsy. Evaluate for renal calculus. History of nephrolithiasis. TECHNIQUE: Single supine KUB image of the abdomen is obtained. COMPARISON: 01/29/2019. FINDINGS: There has been interval removal of the previously seen 2.7 cm right renal calculus overlyin g the collecting system on the prior exam. Colonic fecal debris overlies the right renal shadow at th is time. No left-sided nephrolithiasis is seen. There is a new 4 mm calculus near the right ureterove sicular junction in comparison to the prior. Osseous structures appear intact. No dilated large or sm all bowel. IMPRESSION: Interval removal of the 2.7 cm right renal calculus seen on the prior exam of 01/29/2019 with new 4 m m calculus near the right ureterovesicular junction.
== END ==
LOC: RADUSMAIN 17:48
PROVIDERS: ATTEND Urology
DX: N13.2 Hydronephrosis with renal and ureteral calculous obstruction (principal); N39.0 Urinary tract infection, site not specified
CPT/HCPCS: 74018; 76770; 80053; 87077; 87086; 87186

== ENCOUNTER → 2019-04-09 | Outpatient (CLI) | payer OTHER ==
--- NOTE | 2019-04-09 15:48 | XR ---
EXAMINATION TYPE: XR KUB DATE OF EXAM: 04/09/2019 2:08 PM CLINICAL HISTORY: Right-sided kidney stone. TECHNIQUE: Two supine KUB images of the abdomen are obtained. COMPARISON: CT January 04, 2019. Abdominal x-ray February 22, 2019 FINDINGS: Redemonstration of right-sided pelvic 4 mm stone. No new nephrolithiasis clearly seen. Over all nonobstructive bowel gas pattern. Visualized osseous structures are intact. IMPRESSION: Redemonstration of 4 mm right pelvic density presumed distal residual calculus slightly m ore medial in position may have progressed into bladder since most recent x-ray.
== END | disposition home or self-care (01) ==
LOC: RADXRMAIN 13:50
PROVIDERS: ATTEND Urology
DX: N73.8 Other specified female pelvic inflammatory diseases (principal)
CPT/HCPCS: 74018

== ENCOUNTER → 2020-01-09 | Outpatient (CLI) | payer OTHER ==
[2020-01-09 10:49] VITALS: BP 160/78; PULSE 73; RESP 18; TEMP 97.8
--- NOTE | 2020-01-09 12:42 | P.HPOB ---
History of Present Illness H&P Date: 01/09/20 Chief Complaint: The patient is here for her routine gynecologic exam and ma mmogram. This is a 54-year-old with an LMP of 10/31/2019. Menstrual periods have spaced out significantly. During 2019, menstrual periods were irregular and variable in length. Her LMP was 2 days of spotting in October of this year. Her LPMP was 03/09/2019 with 5 days of light spotting. She has been experiencing some brief occasional hot flashes which are not very bothersome. She is without complaints. Review of Systems The patient has gained 26 pounds over the last year. She attributes the weight gain to poor eating habits. She denies respiratory, cardiac, or G.I. problems. Past Medical History Additional Past Medical History / Comment(s): Left shoulder bone spurs. Kidney stones. 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 No other history of STDs. Endometrial biopsy on 10/29/2014 was benign. History of Any Multi-Drug Resistant Organisms: MRSA Date of last positivie culture/infection: 05/25/19 MDRO Source:: Urine Past Surgical History: No Surgical Hx Reported Additional Past Surgical History / Comment(s): [place] teeth removed. Kidney stones removed. Past Anesthesia/Blood Transfusion Reactions: No Reported Reaction Additional Past Anesthesia/Blood Transfusion Reaction / Comment(s): Mother had problem years ago, recent surgery no problems. Past Psychological History: No Psychological Hx Reported Smoking Status: Never smoker Past Alcohol Use History: Rare (3 per year) Past Drug Use History: None Reported Additional History: She has been since 1987 and is currently unemployed. 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 - Past Family History Mother Family Medical History: Cancer, Hyperlipidemia, Hypertension Additional Family Medical History / Comment(s): uterine and breast. stents, cardiac x2 Father Family Medical History: Diabetes Mellitus, Hypertension Brother(s) Family Medical History: Cancer Additional Family Medical History / Comment(s): Skin CA; another brother had a male-type CA, unknown Medications and Allergies Home Medications Medication Instructions Recorded Confirmed Type Cholecalciferol (Vitamin D3) 1 drop PO DAILY 01/24/19 01/09/20 History [Vitamin D3] Fish Oil/Dha/Epa [Fish Oil 1,200 3 each PO DAILY 01/24/19 01/09/20 History mg Fish Oil] Turmeric/Turmeric Root Extract 2 each PO DAILY 01/24/19 01/09/20 History [Turmeric 450-50 mg Capsule] Allergies Allergy/AdvReac Type Severity Reaction Status Date / Time No Known Allergies Allergy Verified 01/09/20 10:49 Exam Vital Signs Temp Pulse Resp BP Pulse Ox 01/09/20 10:41 97.8 F 73 18 160/78 98 Intake and Output 01/08/20 01/09/20 01/09/20 22:59 06:59 14:59 Other: Weight 95.254 kg Height 5 feet 9 inches, weight 210 pounds, BMI 31.0. This is a well-developed well-nourished white female who is alert and oriented times 3 in no acute distress. HEENT: Within normal limits. NECK: Supple without mass or thyromegaly. CHEST AND LUNGS: Clear to auscultation. HEART: Regular rate and rhythm. BREASTS: Are without mass or discharge. AXILLARY EXAM: Negative for adenopathy. BACK: Negative for CVA tenderness. ABDOMEN: Soft, nontender, without palpable masses. PELVIC EXAM: Normal external genitalia with minimal atrophy. Cervix and vagina appear normal minimal atrophy. There is no unusual discharge. There is no evidence of prolapse. The uterus is midposition, nongravid size and nontender. There are no palpable adnexal masses or tenderness. RECTAL EXAM: Rectovaginal exam is negative for mass or tenderness and is negati ve for occult blood. EXTREMITIES: Nontender. Additional studies: CT scan of the abdomen done on 01/04/2019 because of kidney stones showed a left ovarian cyst measuring 3.4 cm. IMPRESSION: 1. 54-year-old perimenopausal female with oligomenorrhea and mild vasomotor symptoms. 2. Previous ASCUS Pap smear with negative high-risk HPV testing on 11/09/2016. 3. Normal gynecologic exam. 4. Elevated blood pressure. 5. 3.4 cm left ovarian cyst by CT scan on 01/04/2019. PLAN: 1. Pap smear was performed with high-risk HPV testing. 2. Self breast awareness was discussed with the patient. 3. Screening mammogram will be done today. 4. The patient will continue to keep a menstrual calendar and call if menstrual problems. I anticipate menstrual periods will continue to space out. She was instructed to call if she has bleeding after 12 months of amenorrhea. 5. She states she has not had a colonoscopy, but did a cologuard stool test in 2019 and was normal per the patient. 6. We have discussed her weight increase. We have discussed weight control. I have stressed the importance of good nutrition, regular meals, adequate fiber and regular exercise. 7. Because of the left ovarian cyst seen by CT scan on 01/04/2019, I recommend a follow-up pelvic ultrasound to show that the cyst has gone away without any suspicious changes. I have notified the patient of this and I will send her an order slip for this. 7. She was advised to return in one year for her annual well woman exam and as needed.
--- NOTE | 2020-01-10 09:12 | MM ---
Reason for exam: screening (asymptomatic). Last mammogram was performed 1 year and 8 months ago. History: Family history of breast cancer in mother at age 20. Physical Findings: A clinical breast exam by your physician is recommended on an annual basis and results should be correlated with mammographic findings. MG 3D Screening Mammo W/Cad Bilateral CC and MLO view(s) were taken. Prior study comparison: May 23, 2018, bilateral MG 3d screening mammo w/cad. November 09, 2016, bilateral MG 3d screening mammo w/cad. The breast tissue is heterogeneously dense. This may lower the sensitivity of mammography. Stable benign calcifications. There is no discrete abnormality. No significant changes when compared with prior studies. ASSESSMENT: Benign, BI-RAD 2 RECOMMENDATION: Routine screening mammogram of both breasts in 1 year.
== END | disposition home or self-care (01) ==
LOC: WWCWWP 10:33
PROVIDERS: ATTEND Obstetrics & Gynecology
DX: Z12.31 Encounter for screening mammogram for malignant neoplasm of breast (principal)
CPT/HCPCS: 77063; 77067

== ENCOUNTER → 2020-01-17 | Outpatient (CLI) | payer OTHER ==
--- NOTE | 2020-01-17 13:24 | US ---
EXAMINATION TYPE: US pelvic complete DATE OF EXAM: 01/17/2020 COMPARISON: CT 01/04/19 CLINICAL HISTORY: N83.0 OVARIAN CYST. Follow up on Lt Ov cyst seen on CT 1 year ago TECHNIQUE: Transvaginal (TV) and Transabdominal (TA) . Transabdominal sonographic images of the pel vis were acquired. Transvaginal sonographic images were medically necessary to better assess the fol lowing anatomy: Ovaries Date of LMP: going through menopause EXAM MEASUREMENTS: Uterus: 7.2 x 5.1 x 5.6 cm Endometrial Stripe: 1.0 cm Right Ovary: 3.3 x 1.7 x 1.5 cm Left Ovary: 2.4 x 1.5 x 1.2 cm 1. Uterus: Fibroids JUSTIN 1.5 x 1.3 x 1.3 cm; LT UT 2.0 x 1.9 x 2.1 cm 2. Endometrium: Appears heterogenous with cystic areas 3. Right Ovary: Largest follicle 0.8 x 0.5 x 0.6 cm 4. Left Ovary: wnl 5. Bilateral Adnexa: wnl 6. Posterior cul-de-sac: wnl Small amt of fluid seen in anterior cul-de-sac. Urinary bladder is sonolucent. IMPRESSION: 1. Couple of small uterine fibroids. 2. Follicle on the right ovary. 3. Heterogenous appearance to the endometrial canal. Thickening is not appreciated
== END | disposition home or self-care (01) ==
LOC: RADUSWWP 09:26
PROVIDERS: ATTEND Obstetrics & Gynecology
DX: D25.9 Leiomyoma of uterus, unspecified (principal)
CPT/HCPCS: 76830; 76856

== ENCOUNTER → 2020-05-15 | Outpatient (CLI) | payer OTHER ==
--- NOTE | 2020-05-16 07:21 | XR ---
EXAMINATION TYPE: XR KUB DATE OF EXAM: 05/15/2020 COMPARISON: NONE HISTORY: Pain TECHNIQUE: Single supine KUB image of the abdomen is obtained FINDINGS: Small bowel demonstrates no evidence for dilatation or air fluid levels. Gas and fecal material is seen in non-distended colon. No convincing evidence for pneumoperitoneum. No unusual calcifications. The lung bases are clear. The osseous structures are intact. IMPRESSION: 1. Overall nonobstructive bowel gas pattern.
== END | disposition home or self-care (01) ==
LOC: RADXRMAIN 17:16
PROVIDERS: ATTEND Urology
DX: N20.1 Calculus of ureter (principal)
CPT/HCPCS: 74018

== ENCOUNTER → 2020-07-25 | Outpatient (CLI) | payer OTHER ==
--- NOTE | 2020-07-27 16:53 | XR ---
EXAMINATION TYPE: PA chest and right rib series DATE OF EXAM: 07/25/2020 COMPARISON: None HISTORY: 54-year-old female R222, swelling, mass right posterior mid ribs TECHNIQUE: 5 views FINDINGS: The cardiomediastinal silhouette, aorta, and pulmonary vasculature are within normal limits. Lungs an d pleural spaces are clear. No displaced right rib fracture seen. IMPRESSION: No acute cardiopulmonary process. No displaced right rib fracture seen.
== END | disposition home or self-care (01) ==
LOC: RADXRYALE 10:11
PROVIDERS: ATTEND Physician Assistant Medical
DX: R22.2 Localized swelling, mass and lump, trunk (principal)

== ENCOUNTER → 2020-07-31 | Outpatient (CLI) | payer OTHER ==
[~2020-07-31] MED LIST: BAMLANIVIMAB (EUA) 700 MG, ETESEVIMAB (EUA) 1,400 MG in SODIUM CHLORIDE 0.9% 50 ML IVPB ONE; SODIUM CHLORIDE 0.9% 50 ML IVPB ONE; SODIUM CHLORIDE 0.9% 500 ML 500 ML in EMPTY BAG 1 BAG IV PRN
[2020-07-31 13:40] VITALS: RESP 16; TEMP 98
[2020-07-31 14:30] VITALS: PULSE 77
[2020-07-31 14:48] VITALS: BP 140/67
== END | disposition home or self-care (01) ==
LOC: PROCWHC3 12:57
PROVIDERS: ATTEND Physician Assistant Medical
DX: U07.1 COVID-19 (principal)
CPT/HCPCS: Q0245; M0245

== ENCOUNTER → 2020-08-06 | Outpatient (CLI) | payer OTHER ==
--- NOTE | 2020-08-06 07:53 | US ---
EXAMINATION TYPE: US chest DATE OF EXAM: 08/06/2020 COMPARISON: EXAMINATION TYPE: US chest DATE OF EXAM: 08/06/2020 COMPARISON: NONE CLINICAL HISTORY: R22.22 Swelling/mass/lump on trunk. Lump on right side of abdomen. Scanned lump area no abnormalities seen. IMPRESSION: No distinct abnormality appreciated.
== END | disposition home or self-care (01) ==
LOC: RADUSWWP 07:24
PROVIDERS: ATTEND Family Medicine
DX: R22.2 Localized swelling, mass and lump, trunk (principal)
CPT/HCPCS: 76604

== ENCOUNTER 2021-04-06 12:32 | Inpatient (IN) | payer BC, OTHER ==
[2021-04-06] MEDS ORDERED: HYDROmorphone 0.5 MG/0.5 ML SYRINGE IVP STA (12:56)
[2021-04-06] MEDS ORDERED: MIDAZOLAM 1 MG/ML 5 ML VIAL IV STA (12:58)
[2021-04-06] MEDS ORDERED: LIDOCAINE 1% INJ 10MG/ML (20 ML MDV) SQ ONE (12:58)
--- NOTE | 2021-04-06 13:06 | ED ---
General Adult HPI - General Chief complaint: Shortness of Breath Stated complaint: poss pneumothorax Time Seen by Provider: 04/06/21 12:35 Source: patient, family, RN notes reviewed, old records reviewed Mode of arrival: ambulatory Limitations: no limitations - History of Present Illness Initial comments: This is a 55-year-old female presents emergency Department complaining that she fell and hit her left side onto tub yesterday since then she's had left-sided rib pain and had some shortness of breath. Patient went to the primary medical care doctor and they sent to the hospital for x-rays in the x-ray shows a pneumothorax. Also the x-ray shows multiple rib fractures. Patient denies any head injury or neck injury. Patient states she has some left lateral hip pain but she is able to ambulate without problem. Patient denies any other injury at this time. - Related Data Home Medications Medication Instructions Recorded Confirmed Cholecalciferol (Vitamin D3) 1 drop PO DAILY 01/24/19 07/31/20 [Vitamin D3] Fish Oil/Dha/Epa [Fish Oil 1,200 3 each PO DAILY 01/24/19 07/31/20 mg Fish Oil] Turmeric/Turmeric Root Extract 2 each PO DAILY 01/24/19 07/31/20 [Turmeric 450-50 mg Capsule] Losartan [Cozaar] 1 tab PO DAILY 07/31/20 07/31/20 Pravastatin Sodium [Pravachol] 1 tab PO DAILY 07/31/20 07/31/20 Allergies Allergy/AdvReac Type Severity Reaction Status Date / Time No Known Allergies Allergy Verified 04/06/21 12:40 Review of Systems ROS Statement: Those systems with pertinent positive or pertinent negative responses have been documented in the HPI. ROS Other: All systems not noted in ROS Statement are negative. Past Medical History Past Medical History: Hyperlipidemia, Hypertension Additional Past Medical History / Comment(s): Left shoulder bone spurs. Kidney stones. 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 No other history of STDs. Endometrial biopsy on 10/29/2014 was benign. History of Any Multi-Drug Resistant Organisms: MRSA Date of last positivie culture/infection: 05/25/19 MDRO Source:: Urine Past Surgical History: No Surgical Hx Reported Additional Past Surgical History / Comment(s): [place] teeth removed. Kidney stones removed. Past Anesthesia/Blood Transfusion Reactions: No Reported Reaction Additional Past Anesthesia/Blood Transfusion Reaction / Comment(s): Mother had problem years ago, recent surgery no problems. Past Psychological History: No Psychological Hx Reported Smoking Status: Never smoker Past Alcohol Use History: None Reported Past Drug Use History: None Reported - Past Family History Mother Family Medical History: Cancer, Hyperlipidemia, Hypertension Additional Family Medical History / Comment(s): uterine and breast. stents, cardiac x2 Father Family Medical History: Diabetes Mellitus, Hypertension Brother(s) Family Medical History: Cancer Additional Family Medical History / Comment(s): Skin CA; another brother had a male-type CA, unknown General Exam - General Exam Comments Initial Comments: GENERAL: Patient is well-developed and well-nourished. Patient is nontoxic and well- hydrated and is in mild distress. ENT: Neck is soft and supple. No significant lymphadenopathy is noted. Oropharynx is clear. Moist mucous membranes. Neck has full range of motion without eliciting any pain. EYES: The sclera were anicteric and conjunctiva were pink and moist. Extraocular movements were intact and pupils were equal round and reactive to light. E yelids were unremarkable. PULMONARY: Unlabored respirations. Good breath sounds bilaterally. No audible rales rhonchi or wheezing was noted. CARDIOVASCULAR: There is a regular rate and rhythm without any murmurs gallops or rubs. Lateral chest wall tenderness ABDOMEN: Soft and nontender with normal bowel sounds. No palpable organomegaly was noted. There is no palpable pulsatile mass. SKIN: Skin is clear with no lesions or rashes and otherwise unremarkable. NEUROLOGIC: Patient is alert and oriented x3. Cranial nerves II through XII are grossly intact. Motor and sensory are also intact. Normal speech, volume and content. Symmetrical smile. MUSCULOSKELETAL: Normal extremities with adequate strength and full range of motion. Patient has some left lateral hip tenderness to palpation PSYCHIATRIC: Normal psychiatric evaluation. Limitations: no limitations Course Vital Signs 04/06/21 04/06/21 04/06/21 12:36 12:52 13:51 Temperature 98.6 F Pulse Rate 97 98 95 Respiratory 18 18 18 Rate Blood Pressure 194/83 160/86 151/82 O2 Sat by Pulse 98 99 95 Oximetry Procedures - Chest Tube Insertion Consent Obtained: verbal consent Side of Procedure: left Indication: Pneumothorax Placed on monitor/pulse oximetry: Yes Site Prep: Povidone-Iodine Local Anesthesia: Lidocaine 1% Insertion Site: Other (Second intercostal space) Open into Pleural Space Using: Other (thoravent) Tube Size (Georgian): Other (13) Sutured in Place: No Attached to Suction: Yes Type of Suction: Other (Wall suction) Repeat X-ray Results: Other (Good placement with some reinflation) Medical Decision Making - Medical Decision Making EKG shows sinus rhythm with occasional PVC at 87 bpm LA interval is 140 QRS is 92 QT interval 364 QTC is 438. Patient EKG shows no ST segment elevation. I reviewed all outpatient x-rays. It did show a pneumothorax with frequent fractures. After procedure of placing the thoravent I did a postprocedure x-ray showed almost complete reinflation of the lung. I spoke with Brittny nurse practitioner for cardiothoracic surgery she was in agreement with seeing the patient on consult. I spoke with Dr. Rider she agreed to admit the patient. I admitted the patient wrote admitting orders. Disposition Clinical Impression: Pneumothorax Disposition: ADMITTED IP TO THIS HOSP Referrals: Garland Lemons DO [Primary Care Provider] - 1-2 days Time of Disposition: 14:05
--- NOTE | 2021-04-06 14:00 | XR ---
EXAMINATION TYPE: XR chest 2V DATE OF EXAM: 04/06/2021 COMPARISON: 04/06/2021 HISTORY: Shortness of breath TECHNIQUE: Frontal and lateral views of the chest are obtained. FINDINGS: There is been interval placement of left-sided pleural vent. Previously noted left-sided pneumothorax has resolved. No evidence for infiltrate. No evidence for atelectasis. Heart size is stable. Mediastinal structures are stable and grossly unremarkable. No evidence for hilar prominence. Degenerative changes dorsal spine. IMPRESSION: 1. There is been interval placement of left-sided pleural vent. Previously noted left-sided pneumotho rax has resolved.
--- NOTE | 2021-04-06 15:25 | P.GSCN ---
History of Present Illness Consult date: 04/06/21 Reason for Consult: Left-sided traumatic pneumothorax Requesting physician: Domingo Fernandes History of present illness: This is a 55-year-old active female who follows on an outpatient basis with Dr. Garland Lemons for primary care. She is a previous medical history of hypertension and hyperlipidemia. Apparently yesterday she slipped and fell onto her hot tub on her left side. She experienced left-sided chest pain and some shortness of breath, however she did not come into the hospital at that time because she thought she just through her back out. She reports no loss of consciousness and is able to ambulate. She states she had to sleep sitting completely upright in a chair last night. Today she presented to her chiropractor's office for an adjustment, was told she needed an x-ray first and came to [facility] [place] for a chest x-ray which revealed left-sided rib fractures along with pneumothorax. Subsequently she presented to the emergency room, a thoravent was placed by the emergency room physicians with good re- expansion of the left lung. She will be admitted to trauma services and consultation was placed to Dr. Carey from cardiothoracic surgery for management of pneumothorax/thoravent. Review of Systems Review of systems was completed and was negative except as noted - Cardiovascular Reports as per HPI, Reports chest pain Past Medical History Past Medical History: Hyperlipidemia, Hypertension Additional Past Medical History / Comment(s): Left shoulder bone spurs. Kidney stones. 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 No other history of STDs. Endometrial biopsy on 10/29/2014 was benign. History of Any Multi-Drug Resistant Organisms: MRSA Year Discovered:: 05/25/19 MDRO Source:: Urine Past Surgical History: No Surgical Hx Reported Additional Past Surgical History / Comment(s): [place] teeth removed. Kidney stones removed. Past Anesthesia/Blood Transfusion Reactions: No Reported Reaction Additional Past Anesthesia/Blood Transfusion Reaction / Comm: Mother had problem years ago, recent surgery no problems. Past Psychological History: No Psychological Hx Reported Smoking Status: Never smoker Past Alcohol Use History: None Reported Past Drug Use History: None Reported - Past Family History Mother Family Medical History: Cancer, Hyperlipidemia, Hypertension Additional Family Medical History / Comment(s): uterine and breast. stents, cardiac x2 Father Family Medical History: Diabetes Mellitus, Hypertension Brother(s) Family Medical History: Cancer Additional Family Medical History / Comment(s): Skin CA; another brother had a male-type CA, unknown Medications and Allergies Home Medications Medication Instructions Recorded Confirmed Type Fish Oil/Dha/Epa [Fish Oil 1,200 3 cap PO DAILY 01/24/19 04/06/21 History mg Fish Oil] Losartan [Cozaar] 25 mg PO DAILY 07/31/20 04/06/21 History Pravastatin Sodium [Pravachol] 40 mg PO DAILY 07/31/20 04/06/21 History Cholecalciferol [Vitamin D3 (25 25 mcg PO DAILY 04/06/21 04/06/21 History Mcg = 1000 Iu)] Allergies Allergy/AdvReac Type Severity Reaction Status Date / Time No Known Allergies Allergy Verified 04/06/21 14:24 Surgical - Exam Vital Signs Temp Pulse Resp BP Pulse Ox 98.6 F 97 18 194/83 98 04/06/21 12:36 04/06/21 12:36 04/06/21 12:36 04/06/21 12:36 04/06/21 12:36 CONSTITUTIONAL: Awake and alert, cooperative, well-developed, well-nourished, no acute distress EYES: Pupils equal, round, reactive to light, normal ocular movement ENT: Moist mucous membranes without oral lesions present NECK: No masses, no bruits, trachea midline RESPIRATORY: Lungs sounds clear to auscultation bilaterally. Respirations even, nonlabored. Currently on room air with oxygen saturation 95%. Strong cough. No chest wall deformities. No clubbing or cyanosis present CARDIOVASCULAR: S1, S2 present. Regular rate and rhythm, sinus rhythm on telemetry. Palpable peripheral pulses bilaterally. No edema present. No calf pain or tenderness noted. GASTROINTESTINAL: Abdomen soft, nontender, nondistended without masses or organomegaly noted. There is no rebound or guarding present. Active bowel sounds present 4 quadrants. GENITOURINARY: Deferred INTEGUMENTARY: Skin is warm and dry with evidence of good perfusion. NEUROLOGIC: Cranial nerves II through XII intact, normal coordination, no obvious motor or sensory deficits, speech is normal MUSKULOSKELETAL: Able to move all extremities, strength equal bilaterally, normal posture PSYCHIATRIC: Alert and oriented to person place and time, appropriate affect, intact judgment and insight Results - Imaging Chest x-ray: report reviewed, image reviewed EKG: image reviewed Assessment and Plan Assessment: 1. Traumatic left-sided pneumothorax, status post placement of thoravent by the emergency room physicians 2. Left-sided rib fractures, status post slip and fall 3. Acute pain secondary to above 4. History of hypertension, treated 5. History of hyperlipidemia, treated Plan: The patient was seen and examined in the emergency room with Dr. Carey. Currently she is in no acute distress with oxygen saturations in the mid 90s on room air. Pain is somewhat controlled with current medication regimen. Thoravent in place with air leak present as evidenced by fluctuation of the right diaphragm. We connected thoravent to Pleur-evac and placed to continuous wall suction. Thoravent to remain to continuous wall suction for another 24 hours. We will add in Toradol to help with pain control. Will monitor daily chest x-rays. Incentive spirometry ordered and should be encouraged. Medical management of other comorbidities per primary care service. More recommendations to follow. Thank you for this consult. We will continue to follow along with you Time with Patient: Greater than 30
[2021-04-06] MEDS: HYDROmorphone 0.5 MG/0.5 ML SYRINGE IVP PRN ×2 (17:22→22:01)
[2021-04-06] MEDS: KETOROLAC 30 MG/ML 1 ML VIAL IVP SCH (18:35)
[2021-04-07] MEDS: KETOROLAC 30 MG/ML 1 ML VIAL IVP SCH ×5 (00:07→23:28)
[2021-04-07] MEDS: HYDROmorphone 0.5 MG/0.5 ML SYRINGE IVP PRN ×2 (04:23→10:40)
[2021-04-07 06:58] LABS: Basophils % (A) 0 %; Eosinophils # (A) 0.1 k/uL (0-0.7); Eosinophils % (A) 1 %; HCT 41.1 % (34.0-46.0); HGB 13.6 gm/dL (11.4-16.0); Lymphocytes % (A) 13 %; MCH 31.5 pg (25.0-35.0); MCHC 33.1 g/dL (31.0-37.0); MCV 95.2 fL (80.0-100.0); Mean Platelet Volume 7.6; Monocytes # (A) 0.4 k/uL (0-1.0); Monocytes % (A) 6 %; Neutrophils # (A) 5.8 k/uL (1.3-7.7); Neutrophils % (A) 79 %; Platelet Count 188 k/uL (150-450); RBC 4.31 m/uL (3.80-5.40); RDW 13.4 % (11.5-15.5); WBC 7.4 k/uL (3.8-10.6)
--- NOTE | 2021-04-07 07:38 | XR ---
EXAMINATION TYPE: XR chest 1V portable DATE OF EXAM: 04/07/2021 Comparison: 04/06/2021 Clinical History: 55-year-old female pneumothorax Findings: Left-sided Thoravent catheter in place. Redemonstrated left-sided rib fractures. Strandy atelectasis left base. Unable to exclude a trace 2 mm left apical pneumothorax now. Right lung and pleural space are clear. Heart normal size. Impression: Known left-sided rib fractures and left-sided Thoravent catheter in place. Unable to exclude a trace, 2 mm left apical pneumothorax now. Strandy left basilar atelectasis.
--- NOTE | 2021-04-07 08:03 | P.PN ---
Subjective Progress Note Date: 04/07/21 Principal diagnosis: Traumatic left-sided pneumothorax, status post placement of thoravent by the emergency room physicians, left-sided rib fractures, status post slip and fall, acute pain. History of hypertension and hyperlipidemia The patient was seen and examined this morning at the bedside. She was up ambulating back from the bathroom. She remains in no acute distress and oxygenating well on room air. Thoravent remains present, was connected to Pleur-evac with suction applied. No air leak present. Removed suction, continues to have no air leak. Using incentive spirometer. States pain is mostly controlled with current medication regimen. No new concerns. Objective - Vital Signs Vital signs: Vital Signs Temp 98.4 F 04/07/21 05:00 Pulse 93 04/07/21 05:00 Resp 20 04/07/21 05:00 BP 123/74 04/07/21 05:18 Pulse Ox 92 L 04/07/21 05:00 Intake & Output 04/06/21 04/07/21 04/07/21 18:59 06:59 18:59 Intake Total 120 100 Balance 120 100 Weight 96.162 kg Intake: Oral 120 100 Other: Voiding Method Toilet # Voids 3 - Exam CONSTITUTIONAL: Appears comfortable, cooperative, no acute distress RESPIRATORY: Lungs sounds clear bilaterally. Respirations even, nonlabored. Currently on room air with oxygen saturations in the mid 90s. Able to achieve 2500 mL on incentive spirometry. Strong cough. CARDIOVASCULAR: S1, S2 present. Regular rate and rhythm. Palpable peripheral pulses bilaterally. No edema present. No calf pain or tenderness noted. GASTROINTESTINAL: Abdomen soft, nontender, nondistended. Active bowel sounds present 4 quadrants. Tolerating diet. GENITOURINARY: Continues to void INTEGUMENTARY: Skin is warm and dry with evidence of good perfusion. NEUROLOGIC: Cranial nerves II through XII intact MUSKULOSKELETAL: Able to move all extremities, strength equal bilaterally, gait normal PSYCHIATRIC: Alert and oriented to person place and time, appropriate affect, intact judgment and insight INVASIVE LINES AND TUBES: Left sided thoravent present, suction disconnected, no air leak present - Allied health notes Allied health notes reviewed: nursing - Labs CBC & Chem 7: 04/07/21 06:42 - Imaging and Cardiology Chest x-ray: report reviewed, image reviewed Assessment and Plan Assessment: 1. Traumatic left-sided pneumothorax, status post placement of thoravent by the emergency room physicians 2. Left-sided rib fractures, status post slip and fall 3. Acute pain secondary to above 4. History of hypertension, treated 5. History of hyperlipidemia, treated Plan: 1. Suction removed from thoravent, will continue to monitor for air leak. Will repeat chest x-ray in the morning 2. Encourage incentive spirometry 10 times every hour while awake 3. Pain control with current medication regimen 4. Increase activity, ambulate as tolerated 5. Medical management of other comorbidities per primary care service 6. More recommendations to follow based on patient's progress Time with Patient: Greater than 30
--- NOTE | 2021-04-07 08:26 | P.GSHP ---
History of Present Illness H&P Date: 04/06/21 CHIEF COMPLAINT: Status post fall with pneumothorax HISTORY OF PRESENT ILLNESS: The patient is a 55-year-old female who had fell onto her left chest wall in the bathtub. She complained of left chest pain. She presented emergency room. Diagnostic studies demonstrated traumatic pneumothorax. Pleur-evac was placed per emergency room provider. She reports her pain is well-controlled. She denies moderate shortness of breath. PAST MEDICAL HISTORY: See list PAST SURGICAL HISTORY: See list MEDICATIONS See list ALLERGIES: See list SOCIAL HISTORY: See list FAMILY HISTORY: History of cardiac disease. REVIEW OF ORGAN SYSTEMS: CONSTITUTIONAL: Denies any fever or chills. HEENT: Denies any trouble with vision, hearing or nosebleeds. No difficulty swallowing. LYMPHATIC: The patient denies any lumps and bumps around the neck. ENDOCRINE: Denies any thyroid disorders. Denies any blood sugar glucose intolerance. RESPIRATORY: Denies pneumonia. CARDIOVASCULAR: Reports present chest pain. GASTROINTESTINAL: Has heart burn. No bright red blood per rectum. GENITOURINARY: Denies any blood in urine or increased urinary frequency. MUSCULOSKELETAL: Has back pain, stiffness, joint arthritis. NEUROLOGIC: Denies any numbness or tingling along the distal extremities. No s eizure disorders or headaches. PSYCHIATRIC: Denies depression or suidical ideation. HEMATOLOGIC: Denies any abnormal bleeding or bruising. BREASTS: Denies any breast lumps, pain or nipple discharge. PHYSICAL EXAM: VITAL SIGNS: Stable GENERAL: Well-developed male in minimal distress. HEENT: No sclerae icterus. Extraocular movements grossly intact. Moist buccal mucosa. Head is atraumatic. NECK: Cervical spine midline. CHEST: No crepitus or obvious swelling over the chest. Tender along sternum. CARDIOVASCULAR: Distal pulses 2+. Regular rate ABDOMEN: Soft, nontender, nondistended. No rigidity. No peritonitis. MUSCULOSKELETAL: No clubbing, cyanosis, or edema. NEURO: No focal or lateralizing signs. Cranial nerves II to XII intact. SKIN: Perfused. Good skin turgor. LABS: Reviewed STUDIES: Reviewed ASSESSMENT: 1. Status post fall with traumatic left-sided pneumothorax PLAN: 1. Cardiothoracic team following for thoracostomy tube placement and traumatic pneumothorax 2. Incentive spirometer for pulmonary toilet reviewed 3. Inpatient hospitalization greater than 2 nights 4. Discharge pending management of pneumothorax per consulting team Patient seen and evaluated at 2002 Past Medical History Past Medical History: Hyperlipidemia, Hypertension, Renal Disease Additional Past Medical History / Comment(s): L ovarian cyst, liver enlargement, gallstones per cat scan, L shoulder spur/slight tear, kidney stone removed surgically. History of Any Multi-Drug Resistant Organisms: MRSA Date of last positivie culture/infection: 05/25/19 MDRO Source:: Urine Past Surgical History: No Surgical Hx Reported Additional Past Surgical History / Comment(s): Endometrial benign bx, R PCNL, wisdom teeth extractions. Past Anesthesia/Blood Transfusion Reactions: No Reported Reaction Additional Past Anesthesia/Blood Transfusion Reaction / Comment(s): Mother had problem years ago, recent surgery no problems. Past Psychological History: No Psychological Hx Reported Additional Psychological History / Comment(s): Pt resides with her spouse. She is independent. Smoking Status: Never smoker Past Alcohol Use History: None Reported Past Drug Use History: None Reported - Past Family History Mother Family Medical History: Cancer, Coronary Artery Disease (CAD), Hyperlipidemia, Hypertension Additional Family Medical History / Comment(s): uterine and breast. stents, cardiac x2 Father Family Medical History: Diabetes Mellitus, Hypertension Brother(s) Family Medical History: Cancer Additional Family Medical History / Comment(s): Skin CA; another brother had a male-type CA, unknown Medications and Allergies Home Medications Medication Instructions Recorded Confirmed Type Fish Oil/Dha/Epa [Fish Oil 1,200 3 cap PO DAILY 01/24/19 04/06/21 History mg Fish Oil] Losartan [Cozaar] 25 mg PO DAILY 07/31/20 04/06/21 History Pravastatin Sodium [Pravachol] 40 mg PO DAILY 07/31/20 04/06/21 History Cholecalciferol [Vitamin D3 (25 25 mcg PO DAILY 04/06/21 04/06/21 History Mcg = 1000 Iu)] Allergies Allergy/AdvReac Type Severity Reaction Status Date / Time No Known Allergies Allergy Verified 04/06/21 14:24 Surgical - Exam Vital Signs Temp Pulse Resp BP Pulse Ox 98.6 F 97 18 194/83 98 04/06/21 12:36 04/06/21 12:36 04/06/21 12:36 04/06/21 12:36 04/06/21 12:36 Results - Labs 04/07/21 06:42
[2021-04-07] MEDS ORDERED: NON FORMULARY DRUG (Fish Oil/Dha/Epa [Fish Oil 1,200 Mg Fish Oil] 1 EACH Capsule) PO SCH (09:00)
[2021-04-07] MEDS: LOSARTAN 25 MG TAB PO SCH (10:40)
[2021-04-07] MEDS: CHOLECALCIFEROL 25 MCG (1000 IU) TABLET PO SCH (10:40)
[2021-04-07 10:55] LABS: Albumin 4.3 g/dL (3.8-4.9); Albumin/Globulin Ratio 2.15 (1.60-3.17); Anion Gap 13.1 mmol/L (10.00-18.00); BUN/Creat Ratio 14.56 Ratio (12.00-20.00); Blood Urea Nitrogen 13.1 mg/dL (9.0-27.0); Calcium 9.1 mg/dL (8.7-10.3); Carbon Dioxide 22.9 mmol/L (20.0-27.5); Non-African American GFR(CKD) 72.5 (60.0-200.0); Potassium 3.8 mmol/L (3.5-5.5); Total Bilirubin 0.9 mg/dL (0.30-1.20); Total Protein 6.3 g/dL (6.2-8.2)
[2021-04-07] MEDS: PRAVASTATIN SODIUM 40 MG TAB PO SCH (12:31)
--- NOTE | 2021-04-07 20:48 | P.PN ---
Subjective Progress Note Date: 04/07/21 CHIEF COMPLAINT: Status fall with pneumothorax HISTORY OF PRESENT ILLNESS: The patient is a 55-year-old female admitted following fall with left rib fracture and pneumothorax. Her pain is well controlled. She is using incentive spirometry. ROS: No reports of nausea and vomiting. No bowel movements. No fevers or chills. No new chest pain. No productive sputum PHYSICAL EXAM: VITAL SIGNS: Reviewed CONSTITUTIONAL: Well developed and in no acute distress. EYES: Conjuctivae without sclera icterus. Extraocular movements grossly intact. HEAD, EARS, NOSE, THROAT: Moist buccal mucosa. Head is atraumatic, normocephalic. Hears conversational speech. No nasal drainage. RESPIRATORY: Non-labored respirations and equal bilateral excursions. CARDIOVASCULAR: Palpable 2+ radial pulses. ABDOMEN: Non-tender. MUSCULOSKELETAL: No gross deformity of the lower extremities noted. No clubbing. No cyanosis. SKIN: Good skin turgor. Well perfused. NEUROLOGIC: Cranial nerves II through XII grossly intact. No focal or lateralizing signs. PSYCH: Appropriate affect. Alert and oriented to person, place and time. CLINICAL LABS: Reviewed. WBC normal 7.8. Hgb normal 13.6. ASSESSMENT: 1. Traumatic left pneumothorax status post fall. PLAN: 1. Management of chest tube per cardiothoracic team. 2. Pulmonary toilet with incentive spirometry 3. Discharge pending consultants. Objective - Vital Signs Vital signs: Vital Signs Temp 97.7 F 04/07/21 19:26 Pulse 76 04/07/21 19:26 Resp 18 04/07/21 19:26 BP 137/79 04/07/21 19:26 Pulse Ox 96 04/07/21 19:26 Intake & Output 04/07/21 04/07/21 04/08/21 06:59 18:59 06:59 Intake Total 100 Balance 100 Intake: Oral 100 Other: Voiding Method Toilet # Voids 3 3 - Labs CBC & Chem 7: 04/07/21 06:42 04/07/21 06:42 Labs: Abnormal Lab Results - Last 24 Hours (Table) 04/07/21 Range/Units 06:42 Glucose 140 H (70-110) mg/dL ALT 52 H (8-44) U/L Assessment and Plan (1) Traumatic pneumothorax Current Visit: Yes Status: Acute Code(s): S27.0XXA - TRAUMATIC PNEUMOTHORAX, INITIAL ENCOUNTER SNOMED Code(s): 00865455 (2) Traumatic fracture of ribs of left side with pneumothorax Current Visit: Yes Status: Acute Code(s): S22.42XA - MULTIPLE FRACTURES OF RIBS, LEFT SIDE, INIT FOR CLOS FX; S27.0XXA - TRAUMATIC PNEUMOTHORAX, INITIAL ENCOUNTER SNOMED Code(s): 9451863 (3) Fall from ground level Current Visit: Yes Status: Acute Code(s): W18.30XA - FALL ON SAME LEVEL, UNSPECIFIED, INITIAL ENCOUNTER SNOMED Code(s): 46057373
[2021-04-07] MEDS ORDERED: ACETAMINOPHEN TAB 500 MG TAB PO PRN (20:50)
[2021-04-08] MEDS: HYDROmorphone 0.5 MG/0.5 ML SYRINGE IVP PRN (01:54)
[2021-04-08] MEDS: KETOROLAC 30 MG/ML 1 ML VIAL IVP SCH ×2 (05:59→11:38)
[2021-04-08 06:28] LABS: HCT 40.9 % (34.0-46.0); HGB 13.5 gm/dL (11.4-16.0); MCH 31.1 pg (25.0-35.0); MCHC 33.1 g/dL (31.0-37.0); MCV 94.1 fL (80.0-100.0); Mean Platelet Volume 7.4; Platelet Count 196 k/uL (150-450); RBC 4.35 m/uL (3.80-5.40); RDW 13.3 % (11.5-15.5); WBC 4.2 k/uL (3.8-10.6)
[2021-04-08 06:42] LABS: African American GFR (CKD) 75 (>60 ml/min/1.73 sqM); Anion Gap 5 mmol/L; Blood Urea Nitrogen 17 mg/dL (7-17); Calcium 9.3 mg/dL (8.4-10.2); Carbon Dioxide 30 mmol/L (22-30); Chloride 103 mmol/L (98-107); Glucose 103 mg/dL (74-99); Non-African American GFR(CKD) 65 (>60 ml/min/1.73 sqM); Potassium 4.2 mmol/L (3.5-5.1); Sodium 138 mmol/L (137-145)
--- NOTE | 2021-04-08 07:25 | XR ---
EXAMINATION TYPE: XR chest 2V DATE OF EXAM: 04/08/2021 COMPARISON: 04/07/2021 INDICATION: Pneumothorax TECHNIQUE: Frontal and lateral views of the chest are obtained. FINDINGS: The heart size is normal. The pulmonary vasculature is normal. The lungs are clear. No significant residual pneumothorax is evident on the left. Left-sided chest t ube remains present. There is a small left pleural effusion slightly increased from comparison. IMPRESSION: 1. No significant residual left apical pneumothorax. Left-sided chest tube remains in position. 2. Developing minimal left pleural effusion
--- NOTE | 2021-04-08 07:42 | P.PN ---
Subjective Progress Note Date: 04/08/21 Principal diagnosis: Traumatic left-sided pneumothorax, status post placement of thoravent by the emergency room physicians, left-sided rib fractures, status post slip and fall, acute pain. History of hypertension and hyperlipidemia The patient was seen and examined this morning at the bedside. She was sitting up in bed in no acute distress, oxygenating well on room air. Thoravent remains present, no air leak present. Using incentive spirometer. States pain is mostly controlled with current medication regimen. No new concerns. Objective - Vital Signs Vital signs: Vital Signs Temp 97.7 F 04/08/21 04:30 Pulse 58 L 04/08/21 04:30 Resp 16 04/08/21 04:30 BP 123/76 04/08/21 04:30 Pulse Ox 96 04/08/21 04:30 Intake & Output 04/07/21 04/08/21 04/08/21 18:59 06:59 18:59 Intake Total 540 Balance 540 Intake: Oral 540 Other: Voiding Method Toilet # Voids 3 - Exam CONSTITUTIONAL: Appears comfortable, cooperative, no acute distress RESPIRATORY: Lungs sounds clear bilaterally. Respirations even, nonlabored. Currently on room air with oxygen saturations in the mid 90s. Able to achieve 2500 mL on incentive spirometry. Strong cough. CARDIOVASCULAR: S1, S2 present. Regular rate and rhythm. Palpable peripheral pulses bilaterally. No edema present. No calf pain or tenderness noted. GASTROINTESTINAL: Abdomen soft, nontender, nondistended. Active bowel sounds present 4 quadrants. Tolerating diet. GENITOURINARY: Continues to void INTEGUMENTARY: Skin is warm and dry with evidence of good perfusion. NEUROLOGIC: Cranial nerves II through XII intact MUSKULOSKELETAL: Able to move all extremities, strength equal bilaterally, gait normal PSYCHIATRIC: Alert and oriented to person place and time, appropriate affect, intact judgment and insight INVASIVE LINES AND TUBES: Left sided thoravent present to water seal, no air leak present - Allied health notes Allied health notes reviewed: nursing - Labs CBC & Chem 7: 04/08/21 05:54 04/08/21 05:54 Labs: Abnormal Lab Results - Last 24 Hours (Table) 04/07/21 04/08/21 Range/Units 06:42 05:54 Glucose 140 H 103 H (70-110) mg/dL ALT 52 H (8-44) U/L - Imaging and Cardiology Chest x-ray: report reviewed, image reviewed Assessment and Plan Assessment: 1. Traumatic left-sided pneumothorax, status post placement of thoravent by the emergency room physicians 2. Left-sided rib fractures, status post slip and fall 3. Acute pain secondary to above 4. History of hypertension, treated 5. History of hyperlipidemia, treated Plan: 1. Will place occlusive cap today, repeat CXR at noon, in no pneumothorax will discontinue thoravent 2. Encourage incentive spirometry 10 times every hour while awake 3. Pain control with current medication regimen 4. Increase activity, ambulate as tolerated 5. Medical management of other comorbidities per primary care service 6. More recommendations to follow based on patient's progress Time with Patient: Greater than 30
[2021-04-08] MEDS: LOSARTAN 25 MG TAB PO SCH (08:12)
[2021-04-08] MEDS: PRAVASTATIN SODIUM 40 MG TAB PO SCH (08:12)
[2021-04-08] MEDS: CHOLECALCIFEROL 25 MCG (1000 IU) TABLET PO SCH (08:12)
[2021-04-08 11:42] VITALS: BP 126/77; RESP 16; TEMP 98.1
[2021-04-08 11:46] VITALS: PULSE 73
--- NOTE | 2021-04-08 12:09 | XR ---
EXAMINATION TYPE: XR chest 2V DATE OF EXAM: 04/08/2021 COMPARISON: 04/08/2021 HISTORY: Shortness of breath TECHNIQUE: Frontal and lateral views of the chest are obtained. FINDINGS: Left-sided pleural catheter remains in place. I do not see evidence for sizable pneumothorax at this time. The lungs are clear. No evidence for infiltrate. No evidence for atelectasis. Heart size is stable. Mediastinal structures are stable and grossly unremarkable. No evidence for hilar prominence. Degenerative changes dorsal spine. IMPRESSION: 1. Left-sided pleural catheter remains in place. I do not see evidence for sizable pneumothorax at th is time.
--- NOTE | 2021-04-08 12:27 | P.PN ---
Subjective Progress Note Date: 04/08/21 CHIEF COMPLAINT: Status fall with pneumothorax HISTORY OF PRESENT ILLNESS: The patient is a 55-year-old female admitted following ground-levelfall with left rib fracture and pneumothorax. Her family is at bedside. Her pain is well-controlled. No dyspnea. She is using incentive spirometer. ROS: No reports of nausea and vomiting. No bowel movements. No fevers or chills. No new chest pain. No productive sputum PHYSICAL EXAM: VITAL SIGNS: Reviewed CONSTITUTIONAL: Well developed and in no acute distress. EYES: Conjuctivae without sclera icterus. Extraocular movements grossly intact. HEAD, EARS, NOSE, THROAT: Moist buccal mucosa. Head is atraumatic, normocephalic. Hears conversational speech. No nasal drainage. RESPIRATORY: Non-labored respirations and equal bilateral excursions. Left chest prevent intact. CARDIOVASCULAR: Palpable 2+ radial pulses. ABDOMEN: Non-tender. MUSCULOSKELETAL: No gross deformity of the lower extremities noted. No clubbing. No cyanosis. SKIN: Good skin turgor. Well perfused. NEUROLOGIC: Cranial nerves II through XII grossly intact. No focal or lateralizing signs. PSYCH: Appropriate affect. Alert and oriented to person, place and time. CLINICAL LABS: Reviewed. WBC and hemoglobin normal. ASSESSMENT: 1. Traumatic left pneumothorax status post fall. 2. Multiple left-sided rib fractures. PLAN: 1. Continue incentive spirometer for pulmonary toilet 2. Outpatient follow primary care provider and thoracic team reviewed 3. Discharge pending clearance from cardiothoracic team. Objective - Vital Signs Vital signs: Vital Signs Temp 98.1 F 04/08/21 11:11 Pulse 73 04/08/21 11:11 Resp 16 04/08/21 11:11 BP 126/77 04/08/21 11:11 Pulse Ox 98 04/08/21 11:11 Intake & Output 04/07/21 04/08/21 04/08/21 18:59 06:59 18:59 Intake Total 540 Balance 540 Intake: Oral 540 Other: Voiding Method Toilet Toilet # Voids 3 - Labs CBC & Chem 7: 04/08/21 05:54 04/08/21 05:54 Labs: Abnormal Lab Results - Last 24 Hours (Table) 04/08/21 Range/Units 05:54 Glucose 103 H (74-99) mg/dL Assessment and Plan (1) Traumatic pneumothorax Current Visit: Yes Status: Acute Code(s): S27.0XXA - TRAUMATIC PNEUMOTHORAX, INITIAL ENCOUNTER SNOMED Code(s): 12160249 (2) Traumatic fracture of ribs of left side with pneumothorax Current Visit: Yes Status: Acute Code(s): S22.42XA - MULTIPLE FRACTURES OF RIBS, LEFT SIDE, INIT FOR CLOS FX; S27.0XXA - TRAUMATIC PNEUMOTHORAX, INITIAL ENCOUNTER SNOMED Code(s): 0056295 (3) Fall from ground level Current Visit: Yes Status: Acute Code(s): W18.30XA - FALL ON SAME LEVEL, UNSPECIFIED, INITIAL ENCOUNTER SNOMED Code(s): 55855731
--- NOTE | 2021-04-08 18:16 | CONS ---
CONSULTATION REASON FOR CONSULTATION: Advice regarding pneumothorax, hypertension, hyperlipidemia surgery. HISTORY OF PRESENT ILLNESS: This 55-year-old woman with a past medical history of hypertension, hyperlipidemia, , left ovarian cyst, history of MRSA being followed by Dr. Lemons in the outpatient setting, apparently had a fall on the left side and subsequently patient has shortness of breath. The patient is found to have left-sided rib fractures as well as pneumothorax. ThoraVent was placed resulting in re-expansion which was removed by Cardiothoracic surgery. The most recent chest x-ray which was reviewed personally by me showed complete expansion of the lungs with some costophrenic blunting. There is no history of fever, rigors or chills. No history of headache, loss of consciousness or seizures at this time. PAST MEDICAL HISTORY: History of hypertension, hyperlipidemia, , left ovarian cyst. MEDICATIONS: Home medications are prior to admission include: Pravastatin, losartan, fish oil, cholecalciferol. Doses reviewed. ALLERGIES: None. FAMILY HISTORY: History of CAD, hypertension, hyperlipidemia, history of breast surgery and cardiac stents. SOCIAL HISTORY: No history of smoking. No history of alcohol. REVIEW OF SYSTEMS: ENT: No diminished vision. No diminished hearing. CARDIOVASCULAR as mentioned. RESPIRATORY: As mentioned earlier. GI: No nausea or vomiting. : No dysuria or retention. NERVOUS SYSTEM: No numbness or weakness. ALLERGY/IMMUNOLOGY: No asthma or hayfever. MUSCULOSKELETAL as mentioned earlier. HEMATOLOGY/ONCOLOGY: No history of anemia. ENDOCRINE: No history of diabetes or hypothyroidism. CONSTITUTIONAL: As mentioned earlier. DERMATOLOGY: Negative. RHEUMATOLOGY: Negative. PSYCHIATRIC: As mentioned earlier. PHYSICAL EXAMINATION: Patient is alert, oriented x3. The pulse is 58, blood pressure 123/76, respirations 16, temperature 97.7, pulse ox 98% on room air. HEENT: Conjunctivae normal. NECK: No JVD. CARDIOVASCULAR: S1, S2 muffled. RESPIRATION: Breath sounds diminished in the bases. A few scattered rhonchi. No crackles. ABDOMEN: Soft, nontender. No mass palpable. LEGS: No edema. No swelling. NERVOUS SYSTEM: Higher functions as mentioned earlier. Moves all four extremities. No focal deficits. LYMPHATICS: No lymph nodes palpable in the neck, axillae or groin. SKIN: No ulcer, no rash and no bleeding. JOINTS: No active deforming arthropathy. LAB STUDIES: Glucose 140, ALT is 52. ASSESSMENT: 1. Left-sided pneumothorax, fall and as well left sided rib fractures status post ThoraVent insertion. 2. Elevated random glucose. 3. Elevated ALT. 4. Hypertension. 5. Hyperlipidemia. 7. History of left ovarian cyst. 8. History of liver enlargement. 9. History of gallstones. 10.History of MRSA. 11.Obesity body mass index 32.2. 12.FULL CODE. RECOMMENDATIONS AND DISCUSSION: This 55-year-old woman presented after pneumothorax, improving significantly. Patient is currently medically stable. The patient may be advised to follow with primary physician Dr. Lemons closely after discharge. Otherwise, recommend GI prophylaxis as well as DVT prophylaxis. Thank you Dr. Nielsen for letting us participate in the care of this patient. MMODL / IJN: [id number] / MTDD
--- NOTE | 2021-04-09 19:33 | P.DS ---
Providers Date of admission: 04/06/21 14:05 Expected date of discharge: 04/08/21 Attending physician: Aleksandra Nielsen Consults: 04/06/21 14:05 Consult Physician Urgent Consulting Provider: Alberto Carey Consult Reason/Comments: Pneumothorax Do you want consulting provider notified?: Yes 04/07/21 13:30 Consult Physician Routine Consulting Provider: Lloyd Bowers Consult Reason/Comments: Medical management Do you want consulting provider notified?: Yes Primary care physician: Garland Lemons - Discharge Diagnosis(es) (1) Traumatic pneumothorax Status: Acute (2) Traumatic fracture of ribs of left side with pneumothorax Status: Acute (3) Fall from ground level Status: Acute Hospital Course: CHIEF COMPLAINT: Status fall with pneumothorax HISTORY OF PRESENT ILLNESS: The patient is a 55-year-old female admitted following ground-levelfall with left rib fracture and pneumothorax. Patient was managed by cardiothoracic team for a left thoracostomy tube. Patient had repeat x-ray demonstrating stability and resolution of her left pneumothorax. Patient was cleared for discharge from cancer program consultant standpoint. ROS: No reports of nausea and vomiting. No bowel movements. No fevers or chills. No new chest pain. No productive sputum PHYSICAL EXAM: VITAL SIGNS: Reviewed CONSTITUTIONAL: Well developed and in no acute distress. EYES: Conjuctivae without sclera icterus. Extraocular movements grossly intact. HEAD, EARS, NOSE, THROAT: Moist buccal mucosa. Head is atraumatic, normocephalic. Hears conversational speech. No nasal drainage. RESPIRATORY: Non-labored respirations and equal bilateral excursions. Left chest prevent intact. CARDIOVASCULAR: Palpable 2+ radial pulses. ABDOMEN: Non-tender. MUSCULOSKELETAL: No gross deformity of the lower extremities noted. No clubbing. No cyanosis. SKIN: Good skin turgor. Well perfused. NEUROLOGIC: Cranial nerves II through XII grossly intact. No focal or lateralizing signs. PSYCH: Appropriate affect. Alert and oriented to person, place and time. CLINICAL LABS: Reviewed. WBC and hemoglobin normal. ASSESSMENT: 1. Traumatic left pneumothorax status post fall. 2. Multiple left-sided rib fractures. PLAN: 1. Outpatient follow-up primary care provider including cardiothoracic team. 2. Pulmonary toilet with incentive spirometer at home were reviewed. Patient Condition at Discharge: Stable Plan - Discharge Summary Discharge Rx Participant: No New Discharge Prescriptions: New Ibuprofen [Motrin] 600 mg PO Q8HR PRN #30 tab PRN Reason: Pain Acetaminophen Tab [Tylenol Tab] 1,000 mg PO Q6HR PRN #30 tablet PRN Reason: Pain Continue Fish Oil/Dha/Epa [Fish Oil 1,200 mg Fish Oil] 3 cap PO DAILY Losartan [Cozaar] 25 mg PO DAILY Pravastatin Sodium [Pravachol] 40 mg PO DAILY Cholecalciferol [Vitamin D3 (25 Mcg = 1000 Iu)] 25 mcg PO DAILY Discharge Medication List Fish Oil/Dha/Epa [Fish Oil 1,200 mg Fish Oil] 3 cap PO DAILY 01/24/19 [History] Losartan [Cozaar] 25 mg PO DAILY 07/31/20 [History] Pravastatin Sodium [Pravachol] 40 mg PO DAILY 07/31/20 [History] Cholecalciferol [Vitamin D3 (25 Mcg = 1000 Iu)] 25 mcg PO DAILY 04/06/21 [History] Acetaminophen Tab [Tylenol Tab] 1,000 mg PO Q6HR PRN #30 tablet 04/08/21 [Rx] Ibuprofen [Motrin] 600 mg PO Q8HR PRN #30 tab 04/08/21 [Rx] Follow up Appointment(s)/Referral(s): Garland Lemons DO [Primary Care Provider] - 04/13/21 9:20 am Patient Instructions/Handouts: Acetaminophen (By mouth), Ibuprofen (By mouth), Traumatic Pneumothorax (DC) Activity/Diet/Wound Care/Special Instructions: Avoid lifting anything heavier than 10 pounds for 2 weeks. Leave dressing in place for 2 days. On Tuesday you may remove dressing and shower. For any questions or concerns you may call [facility] Brittny Claire at Diet as tolerated Discharge Disposition: HOME SELF-CARE
== END 2021-04-08 16:05 | disposition home or self-care (01) | DRG 200 ==
LOC: EC 12:32 → 5NMEDONC 14:05
PROVIDERS: ADMIT Surgery Plastic and Reconstructive Surgery; ATTEND Surgery Plastic and Reconstructive Surgery
DX: S27.0XXA Traumatic pneumothorax, initial encounter (principal); S22.42XA Multiple fractures of ribs, left side, initial encounter for closed fracture; W01.0XXA Fall on same level from slipping, tripping and stumbling without subsequent striking against object, initial encounter; Y92.002 Bathroom of unspecified non-institutional (private) residence as the place of occurrence of the external cause; E66.9 Obesity, unspecified; E78.5 Hyperlipidemia, unspecified; I10 Essential (primary) hypertension; I49.3 Ventricular premature depolarization; N83.202 Unspecified ovarian cyst, left side; Z68.32 Body mass index [BMI] 32.0-32.9, adult; Z79.899 Other long term (current) drug therapy; Z82.49 Family history of ischemic heart disease and other diseases of the circulatory system; Z83.3 Family history of diabetes mellitus; Z86.14 Personal history of Methicillin resistant Staphylococcus aureus infection; Z87.442 Personal history of urinary calculi; Z80.3 Family history of malignant neoplasm of breast; Z80.49 Family history of malignant neoplasm of other genital organs; Z98.890 Other specified postprocedural states; Z80.8 Family history of malignant neoplasm of other organs or systems; Z20.822 Contact with and (suspected) exposure to COVID-19
CPT/HCPCS: 71045; 71046; 80048; 80053; 85025; 85027; 87635; 93005; 96374; 96375; 99285

== ENCOUNTER → 2021-04-06 | Outpatient (CLI) | payer BC ==
--- NOTE | 2021-04-06 12:06 | XR ---
EXAMINATION TYPE: XR chest 2V DATE OF EXAM: 04/06/2021 COMPARISON: NONE HISTORY: Shortness of breath TECHNIQUE: Frontal and lateral views of the chest are obtained. FINDINGS: Left-sided pneumothorax estimated at 15-20% with apical pleural line of 2.7 cm. No evidence for infiltrate. No evidence for atelectasis. Heart size is stable. Mediastinal structures are stable and grossly unremarkable. No evidence for hilar prominence. Degenerative changes dorsal spine. IMPRESSION: 1. Left-sided pneumothorax estimated at 15-20% with apical pleural line of 2.7 cm
--- NOTE | 2021-04-06 12:16 | XR ---
EXAMINATION TYPE: XR ribs LT DATE OF EXAM: 04/06/2021 CLINICAL HISTORY: Pain, Fall Four views of the ribs fail demonstrate evidence for displaced rib fracture or secondary sign of rib fracture. Visualized lungs are clear. Left-sided pneumothorax redemonstrated as seen on the chest x- ray from the same day. IMPRESSION: No displaced rib fractures seen. Pneumothorax as noted above.
--- NOTE | 2021-04-06 12:19 | XR ---
EXAMINATION TYPE: XR Hip Complete LT DATE OF EXAM: 04/06/2021 CLINICAL HISTORY: pain TECHNIQUE: AP and frogleg views of the left hip are obtained. COMPARISON: None. FINDINGS: There is no acute fracture/dislocation evident. The joint space appears within normal li mits. The overlying soft tissue appears unremarkable. IMPRESSION: 1. There is no acute fracture or dislocation.ICD 10 NO FRACTURE, INITIAL EVALUATION
== END | disposition home or self-care (01) ==
LOC: RADXRMAIN 11:32
PROVIDERS: ATTEND Physician Assistant
DX: M25.552 Pain in left hip (principal); S27.0XXA Traumatic pneumothorax, initial encounter; W19.XXXA Unspecified fall, initial encounter
CPT/HCPCS: 71046; 73502

== ENCOUNTER → 2023-07-12 | Outpatient (CLI) | payer BC ==
--- NOTE | 2023-07-12 13:38 | P.HPOB ---
History of Present Illness H&P Date: 07/12/23 Chief Complaint: The patient is here for her routine gynecologic exam and ma mmogram. This is a 57-year-old with an LMP of 2019. The patient is without gynecologic complaints and denies any postmenopausal bleeding. Review of Systems The patient has lost 3 pounds over the last year. She denies respiratory, cardiac, or G.I. problems. Past Medical History Past Medical History: Hyperlipidemia, Hypertension, Renal Disease Additional Past Medical History / Comment(s): liver enlargement, gallstones per cat scan, L shoulder spur/slight tear, kidney stone removed surgically. Pn eumothorax after a fall in 2020. 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 Small uterine fibroids. History of Any Multi-Drug Resistant Organisms: MRSA Date of last positivie culture/infection: 05/25/19 MDRO Source:: Urine Past Surgical History: No Surgical Hx Reported Additional Past Surgical History / Comment(s): Endometrial benign bx, R PCNL, wisdom teeth extractions. Past Anesthesia/Blood Transfusion Reactions: No Reported Reaction Additional Past Anesthesia/Blood Transfusion Reaction / Comment(s): Mother had problem years ago, recent surgery no problems. Past Psychological History: No Psychological Hx Reported Additional Psychological History / Comment(s): Pt resides with her spouse. She is independent. Smoking Status: Never smoker Past Alcohol Use History: Rare (2 drinks per year.) Past Drug Use History: None Reported Additional History: she has been since 1987 and does not work outside of the home. - Past Family History Mother Family Medical History: Cancer, Coronary Artery Disease (CAD), Hyperlipidemia, Hypertension Additional Family Medical History / Comment(s): uterine and breast. stents, cardiac x2 Father Family Medical History: Diabetes Mellitus, Hypertension Brother(s) Family Medical History: Cancer Additional Family Medical History / Comment(s): Skin CA; another brother had a male-type CA, unknown Medications and Allergies Home Medications Medication Instructions Recorded Confirmed Type Fish Oil/Dha/Epa [Fish Oil 1,200 3 cap PO DAILY 01/24/19 07/12/23 History mg Fish Oil] Losartan [Cozaar] 25 mg PO DAILY 07/31/20 07/12/23 History Cholecalciferol [Vitamin D3 (25 25 mcg PO DAILY 04/06/21 07/12/23 History Mcg = 1000 Iu)] Acetaminophen Tab [Tylenol Tab] 1,000 mg PO Q6HR PRN #30 tablet 04/08/21 07/12/23 Rx Multivitamin [Multivitamins Adult 1 capsule PO DAILY 06/22/22 07/12/23 History Gummies] Allergies Allergy/AdvReac Type Severity Reaction Status Date / Time No Known Allergies Allergy Verified 07/12/23 13:04 Exam Vital Signs Temp Pulse Resp BP Pulse Ox 07/12/23 13:04 97.9 F 81 17 133/79 97 Intake and Output 07/11/23 07/12/23 07/12/23 22:59 06:59 14:59 Other: Weight 96.162 kg height 5 feet 8 inches, weight 212 pounds, BMI 32.2. This is a well-developed well-nourished white female who is alert and oriented times 3 in no acute distress. HEENT: Within normal limits. NECK: Supple without mass or thyromegaly. CHEST AND LUNGS: Clear to auscultation. HEART: Regular rate and rhythm. BREASTS: Are without mass or discharge. AXILLARY EXAM: Negative for adenopathy. BACK: Negative for CVA tenderness. ABDOMEN: Soft, nontender, without palpable masses. PELVIC EXAM: Normal external genitalia with mild atrophy. Cervix and vagina appear normal with mild atrophy. There is no unusual discharge. There is no evidence of prolapse. The uterus is midposition, nongravid size and nontender. There are no palpable adnexal masses or tenderness. RECTAL EXAM: rectovaginal exam is negative for mass or tenderness and is negative for occult blood. EXTREMITIES: Nontender. IMPRESSION: 1.57-year-old menopausal female with normal gynecologic exam. 2. history of small uterine fibroids which are not palpable on exam today.. PLAN: 1. Pap smear was deferred since she had a negative Pap smear cotest on 01/09/2020. 2. Self breast awareness was discussed with the patient. We have also discussed symptoms associated with inflammatory breast cancer. 3. screening mammogram will be done today. 4. Osteoporosis prevention was discussed. I have stressed the importance of adequate calcium, vitamin D and regular exercise. Recommended amounts of calcium and vitamin D were also discussed. 5. colorectal cancer screening has been done with Cologuard testing through her PCP. 6. She was advised to return in one year for her annual well woman exam.
[2023-07-12 13:40] VITALS: BP 133/79; PULSE 81; RESP 17; TEMP 97.9
--- NOTE | 2023-07-14 12:57 | MM ---
Reason for Exam: Screening (asymptomatic). Last mammogram was performed 1 year(s) and 1 month(s) ago. Patient History: Menarche at age 14. First Full-Term at age 24. Postmenopausal. Patient used Hormonal Contraceptives for 2 years. Risk Values: Yohana 5 year model risk: 1.1%. NCI Lifetime model risk: 7.2%. Prior Study Comparison: 10/22/2014 Bilateral Screening Mammogram, [facility]. 01/09/2020 Bilateral Screening Mammogram, [facility]. 05/26/2021 Bilateral Screening Mammogram, [facility]. 06/22/2022 Bilateral MG 3D screening mammo w/cad, [facility]. Tissue Density: The breasts are heterogeneously dense, which may obscure small masses. Findings: Analyzed By CAD. There is no suspicious group of microcalcifications or new suspicious mass in either breast. Overall Assessment: Benign, BI-RAD 2 Management: Screening Mammogram of both breasts in 1 year. . Patient should continue monthly self-breast exams. A clinical breast exam by your physician is recommended on an annual basis. This exam should not preclude additional follow-up of suspicious palpable abnormalities. Note on Yohana scores and lifetime risk: 1. A Yohana score greater than 3% is considered moderate risk. If this is the case, consider specialist referral to assess eligibility for a risk reducing agent. 2. If overall lifetime risk for the development of breast cancer is 20% or higher, the patient may qualify for future screening with alternating mammogram and breast MRI. Electronically signed and approved by: Yuniel Ritter M.D. Radiologis
== END ==
LOC: WWCWWP 12:31
PROVIDERS: ATTEND Obstetrics & Gynecology
DX: Z01.419 Encounter for gynecological examination (general) (routine) without abnormal findings (principal); Z12.31 Encounter for screening mammogram for malignant neoplasm of breast; Z78.0 Asymptomatic menopausal state; Z86.018 Personal history of other benign neoplasm
CPT/HCPCS: 77063; 77067

== ENCOUNTER → 2023-07-25 | Outpatient (CLI) | payer BC ==
--- NOTE | 2023-07-25 09:24 | XR ---
EXAMINATION TYPE: XR foot complete RT DATE OF EXAM: 07/25/2023 COMPARISON: 12/21/2018 HISTORY: Plantar fascial pain TECHNIQUE: 3 view right foot FINDINGS: No acute fractures or dislocations evident. Joint spaces are preserved. Soft tissues appear normal. Tiny Achilles tendon calcaneal heel spur is present. No sizable plantar heel spur is identif ied. Follow up exams can be performed 7-10 days from acute trauma for continued pain. IMPRESSION: 1. No acute osseous abnormality right foot
== END | disposition home or self-care (01) ==
LOC: RADXRYALE 08:43
PROVIDERS: ATTEND Family Medicine
DX: M72.2 Plantar fascial fibromatosis (principal); M79.671 Pain in right foot

== ENCOUNTER → 2024-08-14 | Outpatient (CLI) | payer BC ==
[2024-08-14 14:18] VITALS: BP 121/79; PULSE 71; RESP 16; TEMP 98.6
--- NOTE | 2024-08-14 14:50 | P.HPOB ---
History of Present Illness H&P Date: 08/14/24 Chief Complaint: The patient is here for her routine gynecologic exam and ma mmogram. This is a 58-year-old G2, P2 with an LMP of 2019. The patient noticed a small amount of spotting on 06/13 and 06/14/2024. She denies cramping. She noticed this after wiping after urination. She has a history of kidney stones, but denies kidney stone types of pain. She also has been having some irritation near the anus, but the above spotting was not from this area. She initially thought she was having some hemorrhoid problems and was treated with some type of suppository by her PCP. This did seem to help somewhat, but when she wipes she does still notice irritation on the left side. She denies constipation or hard stools. It mostly feels irritated when she is wiping in the anal region. She also has noticed issues with her bladder. She states she often has to get to the bathroom right away when she has the urge to go. She has also had some issues with immediate leakage with jumping or sneezing. Review of Systems The patient has gained [] pounds over the last year. She denies respiratory, cardiac, or G.I. problems. : Some urinary incontinence with sneezing and jumping. Also has to get to the bathroom right away when she does feel the urge to urinate. Past Medical History Past Medical History: Hyperlipidemia, Hypertension, Renal Disease Additional Past Medical History / Comment(s): liver enlargement, gallstones per cat scan, L shoulder spur/slight tear, kidney stone removed surgically. Pneumothorax after a fall in 2020. Past SAW REPAIRER history: Chlamydia in her 20s. Small uterine fibroids. History of Any Multi-Drug Resistant Organisms: MRSA Date of last positivie culture/infection: 05/25/19 MDRO Source:: Urine Past Surgical History: No Surgical Hx Reported Additional Past Surgical History / Comment(s): Endometrial benign bx, R PCNL, wisdom teeth extractions. Past Anesthesia/Blood Transfusion Reactions: No Reported Reaction Additional Past Anesthesia/Blood Transfusion Reaction / Comment(s): Mother had problem years ago, recent surgery no problems. Past Psychological History: No Psychological Hx Reported Additional Psychological History / Comment(s): Pt resides with her spouse. She is independent. Smoking Status: Never smoker Past Alcohol Use History: Rare (1 drink per year.) Past Drug Use History: None Reported Additional History: She has been since 1987. She has not been sexually active for a while. She does not work outside of the home - Past Family History Mother Family Medical History: Cancer, Coronary Artery Disease (CAD), Hyperlipidemia, Hypertension Additional Family Medical History / Comment(s): uterine and breast. stents, cardiac x2 Father Family Medical History: Diabetes Mellitus, Hypertension Brother(s) Family Medical History: Cancer Additional Family Medical History / Comment(s): Skin CA; another brother had a male-type CA, unknown Medications and Allergies Home Medications Medication Instructions Recorded Confirmed Type Fish Oil/Dha/Epa [Fish Oil 1,200 3 cap PO DAILY 01/24/19 07/12/23 History mg Fish Oil] Losartan [Cozaar] 25 mg PO DAILY 07/31/20 07/12/23 History Cholecalciferol [Vitamin D3 (25 25 mcg PO DAILY 04/06/21 07/12/23 History Mcg = 1000 Iu)] Acetaminophen Tab [Tylenol Tab] 1,000 mg PO Q6HR PRN #30 tablet 04/08/21 07/12/23 Rx Multivitamin [Multivitamins Adult 1 capsule PO DAILY 06/22/22 07/12/23 History Gummies] Inos/Chol/Methio/Taur/Herb 317 2 capsule PO BID 08/14/24 08/14/24 History [Lipotropix Capsule] Allergies Allergy/AdvReac Type Severity Reaction Status Date / Time No Known Allergies Allergy Verified 08/14/24 14:05 Exam Vital Signs Temp Pulse Resp BP Pulse Ox 08/14/24 14:09 98.6 F 71 16 121/79 97 Intake and Output 08/13/24 08/14/24 08/14/24 22:59 06:59 14:59 Other: Weight 101.605 kg Height 5 feet 8 inches, weight 224 pounds, BMI 34.1 This is a well-developed well-nourished white female who is alert and oriented times 3 in no acute distress. HEENT: Within normal limits. NECK: Supple without mass or thyromegaly. CHEST AND LUNGS: Clear to auscultation. HEART: Regular rate and rhythm. BREASTS: Are without mass or discharge. AXILLARY EXAM: Negative for adenopathy. BACK: Negative for CVA tenderness. ABDOMEN: Soft, nontender, without palpable masses. PELVIC EXAM: Normal external genitalia with mild atrophy. Cervix and vagina appear normal mild atrophy. There is no unusual discharge or blood. There is no evidence of prolapse. The uterus is midposition, nongravid size and nontender. There are no palpable adnexal masses or tenderness. RECTAL EXAM: R external hemorrhoids noted which do not appear inflamed. They are nontender. The left perianal skin appears mildly excoriated and there is mild erythema. It has the appearance of being scratched. Rectovaginal exam is negative for mass or tenderness and is negative for occult blood. EXTREMITIES: Nontender. IMPRESSION: 1. 58-year-old menopausal female with normal gynecologic exam. 2. Brief episodes of spotting after wiping on 06/13/2024 and 06/14/2024. Differential diagnosis will include small uterine bleeding, atrophic vaginal tissue bleeding or possible hematuria from kidney stones or other urologic cause. This seems separate from her perianal irritation. 3. Left perianal inflammation and irritation. This seems separate from her hemorrhoids which do not appear inflamed. 4. Stress urinary incontinence, possible mixed urinary incontinence. PLAN: 1. Pap smear cotest was performed. Her last 1 was normal on 01/09/2020. 2. Self breast awareness was discussed with the patient. We have also discussed symptoms associated with inflammatory breast cancer. 3. Screening mammogram will be done today. 4. Pelvic ultrasound was recommended. This will be done to evaluate the endometrial thickness. The order slip was given to the patient for this. She was also instructed to call if she is having recurring vaginal bleeding. If she thinks that this could be coming from the urine, she can follow up with her urologist. 5. Kenalog 0.1% cream twice daily as needed for perianal irritation. The electronic prescription will be sent to [facility] on [facility]. I have also recommended that she use petroleum jelly once a day to this area as a protective layer. She will wean off both of these as this improves. 6. I recommended Kegel exercises, timed voids, and trying to empty the bladder as thoroughly as possible when she does void. Instructions were given to her on all of these. If she continues to have issues with urinary incontinence, she was instructed to call for possible referral to Dr. Johnnie Arguelles. 7. She was advised to return in one year for her annual well woman exam and as needed.
--- NOTE | 2024-08-15 14:19 | MM ---
Reason for Exam: Screening (asymptomatic). Last mammogram was performed 1 year(s) and 1 month(s) ago. Patient History: Menarche at age 14. First Full-Term at age 24. Postmenopausal. Patient used Hormonal Contraceptives for 2 years. Risk Values: Yohana 5 year model risk: 1.1%. NCI Lifetime model risk: 7.1%. Prior Study Comparison: 05/26/2021 Bilateral Screening Mammogram, [facility]. 06/22/2022 Bilateral MG 3D screening mammo w/cad, [facility]. 07/12/2023 Bilateral MG 3D screening mammo w/cad, [facility]. Tissue Density: The breasts are heterogeneously dense, which may obscure small masses. Findings: Analyzed By CAD. Right breast: There is no suspicious group of microcalcifications or new suspicious mass. Left breast: There is no suspicious group of microcalcifications or new suspicious mass. Overall Assessment: Negative, BI-RAD 1 Management: Screening Mammogram of both breasts in [address] [facility] will attempt to contact patient to return for supplemental views and ultrasound if indicated. Patient should continue monthly self-breast exams. A clinical breast exam by your physician is recommended on an annual basis. This exam should not preclude additional follow-up of suspicious palpable abnormalities. Note on Yohana scores and lifetime risk: 1. A Yohana score greater than 3% is considered moderate risk. If this is the case, consider specialist referral to assess eligibility for a risk reducing agent. 2. If overall lifetime risk for the development of breast cancer is 20% or higher, the patient may qualify for future screening with alternating mammogram and breast MRI. [facility], , 08/14/2024 2:39 PM. Electronically signed and approved by: Zackery Lopez DO
== END ==
LOC: WWCWWP 13:47
PROVIDERS: ATTEND Obstetrics & Gynecology
DX: Z01.419 Encounter for gynecological examination (general) (routine) without abnormal findings (principal); Z12.31 Encounter for screening mammogram for malignant neoplasm of breast; Z78.0 Asymptomatic menopausal state; Z87.442 Personal history of urinary calculi
CPT/HCPCS: 77063; 77067

== ENCOUNTER → 2024-08-28 | Outpatient (CLI) | payer BC ==
--- NOTE | 2024-08-28 15:34 | US ---
EXAMINATION TYPE: US pelvis complete transvag DATE OF EXAM: 08/28/2024 COMPARISON: US 01/17/2020 CLINICAL INDICATION: Female, 58 years old with history of N95.0 PMB; Post menopausal spotting for a f ew days in June 2024 TECHNIQUE: Transvaginal (TV) and Transabdominal (TA) . Transabdominal grayscale sonographic images of the pelvis were acquired. Transvaginal sonographic im ages were medically necessary to better assess the following anatomy: Endometrium Doppler imaging: Not performed. FINDINGS: Date of LMP: Post menopausal EXAM MEASUREMENTS: Uterus: 6.6 x 3.7 x 5.6 cm Endometrial Stripe: 0.6 cm Right Ovary: 1.2 x 1.1 x 1.1 cm Left Ovary: Not visualized due to bowel gas. 1. Uterus: Retroverted wnl, heterogeneous myometrium 2. Endometrium: Thickened vs upper limits 3. Right Ovary: wnl 4. Left Ovary: Not visualized due to bowel gas and postmenopausal state 5. Bilateral Adnexa: wnl 6. Posterior cul-de-sac: wnl Exam limited by bowel gas IMPRESSION: Suboptimal study. Slight thickening of endometrial stripe up to 6 mm for postmenopausal f emale. Neoplasm not excluded. Advise sampling to further evaluate especially if symptoms of bleeding persists. O-RADS 2021 [email or web address] [facility], , 08/28/2024 3:31 PM
--- NOTE | 2024-08-29 10:06 | P.PN ---
Progress Note - Text Progress Note Date: 08/29/24 OUTPATIENT FOLLOW-UP NOTE TEST(S)/RESULTS: Pelvic ultrasound done on 08/28/2024 showed an endometrial thickness of 6 mm. The ultrasound was otherwise unremarkable. METHOD OF NOTIFICATION: The patient was notified by phone on 08/29/2024. PATIENT COMMENTS: She states she has not had any more vaginal bleeding since the spotting early in June of this year. DIAGNOSIS: Small postmenopausal bleeding with borderline endometrial thickness. DISCUSSION: We will plan on doing an endometrial biopsy. If this is benign, conservative management. PLAN: As above.
== END | disposition home or self-care (01) ==
LOC: RADUSWWP 14:05
PROVIDERS: ATTEND Obstetrics & Gynecology
DX: N95.0 Postmenopausal bleeding (principal); R93.89 Abnormal findings on diagnostic imaging of other specified body structures; Z78.0 Asymptomatic menopausal state
CPT/HCPCS: 76830; 76856

== ENCOUNTER → 2024-09-12 | Day surgery (SDC) | payer BC ==
[2024-09-12 09:03] VITALS: RESP 16; TEMP 97.9
--- NOTE | 2024-09-12 09:26 | P.PCN ---
Date of Procedure: 09/12/24 Preoperative Diagnosis: Small postmenopausal bleeding Postoperative Diagnosis: Same. Procedure(s) Performed: Endometrial biopsy Anesthesia: none Surgeon: Julio Rojas Estimated Blood Loss (ml): 0 Pathology: other (Endometrial tissue) Condition: stable Disposition: same day Indications for Procedure: This was a 58-year-old menopausal female who had 2 days of light vaginal spotting on 06/13/2024 and 06/14/2024. She denies any vaginal bleeding since then. Pelvic ultrasound was done and showed a borderline endometrial thickness measuring 6 mm. Operative Findings: The uterus was midposition and nongravid size. There were no palpable adnexal masses. The uterus sounded to 8.5 cm. A small amount of endometrial tissue was obtained. Description of Procedure: The procedure and indication was discussed with the patient. She denies any more vaginal bleeding since the 2-day episode in early June. Possible risks and complications were discussed including bleeding, infection, uterine perforation, and damage to surrounding structures. All questions were answered. Procedure vitals: Blood pressure 143/71, temperature 97.9, pulse 62, pulse oximeter 99%. The patient was placed in the lithotomy position and bimanual examination was performed. A speculum was inserted into the vagina. The cervix and vagina were prepped with Betadine solution x 3. A 3 mm endometrial biopsy instrument was inserted through the cervix to the fundus without difficulty. The uterus measured 8.5 cm. Negative pressure was applied and a [id number] rotating motion was used. A small amount of endometrial tissue was obtained and this filled the endometrial biopsy instrument about retirement. This was sent for pathological examination. The patient tolerated the procedure well. Estimated blood loss was 0 mL. Post procedure vital signs blood pressure 150/81, pulse 68. Patient was discharged in stable condition. There were no complications. The patient was instructed to call if she had problems including heavy vaginal bleeding, fever, or unusual pain, patient was instructed to abstain from sexual activity for 7 days.
[2024-09-12 10:32] VITALS: BP 150/81; PULSE 68
== END ==
LOC: WWCWWP 08:44
PROVIDERS: ATTEND Obstetrics & Gynecology
DX: C54.1 Malignant neoplasm of endometrium (principal)
CPT/HCPCS: 88305; 88341; 88342

== ENCOUNTER → 2024-10-05 | Outpatient (CLI) | payer BC ==
--- NOTE | 2024-10-05 18:30 | XR ---
EXAMINATION TYPE: XR chest 2V DATE OF EXAM: 10/05/2024 4:06 PM COMPARISON: Chest radiographs from 04/08/2021. CLINICAL INDICATION: Female, 58 years old with history of C54.1 MALIGNANT NEOPLASM OF ENDOMETRIUM; PH H TECHNIQUE: XR chest 2V Frontal and lateral views of the chest. FINDINGS: Lungs/Pleura: There is no evidence of pleural effusion, focal consolidation, or pneumothorax. Pulmonary vascularity: Unremarkable. Heart/mediastinum: Cardiomediastinal silhouette is unremarkable. Musculoskeletal: No acute osseous pathology. IMPRESSION: No acute cardiopulmonary disease/process. [facility], , 10/05/2024 6:28 PM
== END | disposition home or self-care (01) ==
LOC: RADXRMAIN 15:48
PROVIDERS: ATTEND Obstetrics & Gynecology
DX: C54.1 Malignant neoplasm of endometrium (principal)
CPT/HCPCS: 71046